=== PATIENT | female | born 1985 | race African-American/Black ===

== ENCOUNTER 2017-09-16 13:00 | Emergency (ER) | payer OTHER ==
--- NOTE | 2017-09-16 14:10 | ULT ---
ULTRASOUND WITH DOPPLER DUPLEX VENOUS LEFT LOWER EXTREMITY: CPT: 10754 ICD-10-PCS: B54D HISTORY: Pain. COMPARISON: 06/09/17. TECHNIQUE: Color flow Doppler, spectral waveform analysis of pulsed Doppler, and chester-scale imaging with compre ssion and augmentation, were used to evaluate the bilateral common femoral, femoral, popliteal, post erior tibial, and superficial femoral, veins; and the proximal portions of the profunda femoral and greater saphenous, veins. FINDINGS: Appropriate compressibility and flow within the imaged deep vein system of the left lower extremity. IMPRESSION: No deep vein thrombosis. POS: [facility]
== END 2017-09-16 15:42 | disposition home or self-care (01) ==
LOC: ERS 13:00
DX: S90.122A Contusion of left lesser toe(s) without damage to nail, initial encounter (principal); G43.909 Migraine, unspecified, not intractable, without status migrainosus; E28.2 Polycystic ovarian syndrome; F43.10 Post-traumatic stress disorder, unspecified; F41.9 Anxiety disorder, unspecified; F32.9 Major depressive disorder, single episode, unspecified; W22.09XA Striking against other stationary object, initial encounter

== ENCOUNTER 2018-01-24 08:37 | Observation (INO) | payer OTHER ==
[2018-01-24 09:11] LABS: #Eosinphils 0.1 thou/uL (0.0-0.7); #Lymphocytes 2.2 thou/uL (1.20-3.40); #Monocytes 0.6 thou/uL (0.11-0.59); #Neutrophils 6.1 thou/uL (1.40-6.50); %Basophils 0.4 % (0.0-1.0); %Eosinophils 1.2 % (0.0-10.0); %Lymphocytes 24.6 % (21.0-51.0); %Monocytes 6.4 % (0.0-10.0); %Neutrophils 67.4 % (42.0-75.0); Hemoglobin 12.9 g/dL (12.0-16.0); Mean Corpuscular HGB CONC 33.7 g/dL (32.0-36.0); Mean Corpuscular Hemoglobin 29.5 pg (27.0-31.0); Mean Corpuscular Volume 87.6 fl (81.0-99.0); Mean Platelet Volume 6.6 fL (7.4-10.4); Platelet Count 301 thou/uL (130-400); RBC Distribution Width 11.5 % (11.5-14.5); Red Blood Cell (RBC) Count 4.35 mill/uL (4.20-5.40); White Blood Cell (WBC) Count 9.1 thou/uL (4.8-10.8)
[2018-01-24 09:14] LABS: BHCG - Serum Negative (NEGATIVE); Pregs Control Background? CLEAR/WHITE (CLR/WHITE); Pregs Control Bar Appear? YES (CONTROL BAR)
[2018-01-24 09:19] LABS: ALT (SGPT) Less than 7 U/L (8-55); AST (SGOT) 10 U/L (5-34); Albumin 3.8 g/dL (3.5-5.0); Alkaline Phosphatase 47 U/L (40-150); Anion Gap 11 mmol/L (10-20); BUN (Urea Nitrogen) 16 mg/dL (7.0-18.7); Bilirubin, Total 0.3 mg/dL (0.2-1.2); Calc. Creatinine Clearance 0 mL/min (70-130); Carbon Dioxide 24 mmol/L (22-29); Chloride 105 mmol/L (98-107); Estimated GFR-MDRD Greater than 90; Globulin 3.3 g/dL (2.4-3.5); Glucose 104 mg/dL (70-105); Lipase 31 U/L (8-78); Protein, Total 7.1 g/dL (6.0-8.3); Sodium 136 mmol/L (136-145)
[2018-01-24] MEDS ORDERED: diphenhydrAMINE 50 MG/ML VIAL ONE ×2 (09:47→16:21)
[2018-01-24 09:53] LABS: Bilirubin Negative (Negative); Blood, Urine Negative (Negative); Clarity CLEAR (Clear); Glucose, Urine (Dipstick) Negative (Negative); Leukocyte Negative (Negative); Nitrite Negative (Negative); Protein, Urine (Dipstick) Negative (Neg-Trace); Specific Gravity, Urine 1.029 (1.002-1.036); pH, Urine 5.5 (5.0-9.0)
[2018-01-24] MEDS ORDERED: Acetaminophen 500 MG TAB ONE (10:33)
--- NOTE | 2018-01-24 10:55 | CT ---
CT OF THE ABDOMEN AND PELVIS: Date: 01-24-18 Comparison: 04-16-13 History: Nausea, vomiting, and emesis, periumbilical pain radiating to the right lower quadrant. Technique: Serial axial CT imaging is obtained at 5 mm intervals from the lung bases through the pubi c symphysis with IV and oral contrast. Coronal reformatted imaging obtained. FINDINGS: Small stable fat containing umbilical hernia is present. Imaged lung bases are unremarkable. Gallbladder is surgically absent. No free intraperitoneal air. The liver, spleen, pancreas, adrenal glands, and kidneys are unremarkable. Incidental note is made of trace free fluid in the pelvic cul-de-sac. There is no evidence for bowel obstruction. On images 53 through 59 the appendix is visualized. The appendix appears abnormal, ill-defined and di lated distally, measuring up to 9-10 mm. The distal appendix demonstrates ill-defined wall with mucos al thickening and mild periappendiceal fat stranding. Findings are suspicious for acute appendicitis. There is no evidence for abscess. The vascular structures of the abdomen/pelvis appear patent. No abdominal or pelvic lymphadenopathy i s seen. Osseous structures demonstrate no acute findings. IMPRESSION: 1. Findings suspicious for acute appendicitis. 2. These findings were discussed with Sweetie Gallegos at 10:35 a.m. 01-24-18. Code CR POS: [facility]
[2018-01-24] MEDS ORDERED: Enoxaparin Sodium 40 MG/0.4 ML SYRINGE ONE (11:13)
--- NOTE | 2018-01-24 11:27 | HP ---
DATE OF ADMISSION: 01/24/2018 HISTORY OF PRESENT ILLNESS: A 32-year-old obese -[place] woman presented to emergency depart ment complaining of insidious onset periumbilical abdominal pain, which woke up this morning. Pain i s described as sharp rated at 9/10 and has since settled in the right lower quadrant. Pain was assoc iated with one bout of nonbilious emesis. Patient denies any change in her bowel habits. Patient de nies any fevers or chills. PAST MEDICAL HISTORY: She denies any previous medical problems. PAST SURGICAL HISTORY: Pertinent for laparoscopic cholecystectomy May last year. She is also status post x1 through a low Pfannenstiel incision. SOCIAL HISTORY: She is self-employed small business water treatment plant mechanic. She denies any cigarette smoking, ethano l or illicit drug abuse. She is a . PREHOSPITAL MEDICATIONS: None. ALLERGIES: To PENICILLIN and MORPHINE. FAMILY HISTORY: Notable for essential hypertension and heart disease in her mother. She denies any family history of diabetes mellitus. Two members of extended family have history of some bone cancer , she does not recall the specifics. REVIEW OF SYSTEMS: A 10-point review of system is essentially unremarkable except for as stated in p ast medical history and chief complaint. PHYSICAL EXAMINATION: GENERAL: This reveals a 32-year-old obese woman who is otherwise coherent and interactive and appear s stated age. Patient is alert and oriented x3. She appears to be in no acute distress at the time of my evaluation. HEENT: Reveals normocephalic and atraumatic. Pupils are equal, round, and reactive to light and acc ommodation. CARDIOVASCULAR: Reveals regular rate and rhythm, no murmurs, or gallops auscultated. LUNGS: Clear to auscultation bilaterally. Breathing regular and unlabored. ABDOMEN: Soft and obese. She has right lower quadrant tenderness at McBurney's. She has a positive Rovsing sign. Liver and spleen otherwise nonpalpable below costal margins. EXTREMITIES: Reveals 2+ radial and pedal pulses bilaterally. No ankle edema is present. NEUROLOGIC: Cranial nerves II-XII grossly intact bilaterally. Patient has no focal neurologic defic its present. PERTINENT LABORATORY FINDINGS: Includes a CBC with 9100 white blood cells, hemoglobin and hematocrit 12.9 and 38.1 respectively. Platelet count is 301,000. Metabolic profile: Sodium 136, potassium i s 4.0, chloride is 105, bicarbonate 24, BUN 16, creatinine is 0.87, glucose 104, total bilirubin 0.3, AST and ALT 10 and less than 7 respectively. Serum lipase is normal at 31. Serum test is negative. I have personally reviewed the CT scan of the abdomen and pelvis, which is remarkable for dilated toya endix with periappendiceal fat stranding. No significant free fluid or pneumoperitoneum is evident. IMPRESSION: Acute appendicitis. PLAN: Laparoscopic appendectomy. The above findings and plan has been discussed with the patient, adult sister and her nurse at [facility]. I have advised the patient of the risk and benefits of the proposed surgery. Risks include, but not limited to bleeding, infection, injury to bowel or surrounding structures. Patient indicates underst anding of information given. I answered her questions. Patient has granted consent for this admissi on and surgical intervention.
[2018-01-24] MEDS ORDERED: Fentanyl 100 MCG/2 ML VIAL ONE (11:50)
[2018-01-24] MEDS ORDERED: Midazolam HCl 2 mg/2 ml Vial ONE (11:50)
[2018-01-24] MEDS ORDERED: ISOVUE-370 76%-LOCM 1 ML ONE (13:10)
[2018-01-24] MEDS ORDERED: Ketorolac Tromethamine 30 MG/ML VIAL ONE ×2 (16:21→16:49)
[2018-01-24] MEDS ORDERED: Lidocaine 1% PF 5 ML VIAL ONE (16:21)
[2018-01-24] MEDS ORDERED: Glycopyrrolate 0.2 MG/ML 5 ML SYRINGE ONE (16:21)
[2018-01-24] MEDS ORDERED: Ondansetron HCl/PF 4 MG/2 ML Vial ONE ×2 (16:21→16:48)
[2018-01-24] MEDS ORDERED: PROPOFOL 200 MG/20 ML VIAL ONE (16:21)
[2018-01-24] MEDS ORDERED: Dexamethasone 20 MG/5 ML VIAL ONE (16:21)
--- NOTE | 2018-01-24 16:41 | OP ---
DATE OF PROCEDURE: 01/24/2018 PREOPERATIVE DIAGNOSIS: Acute appendicitis. POSTOPERATIVE DIAGNOSIS: Acute appendicitis. PROCEDURES PERFORMED: Laparoscopic appendectomy. SURGEON: Marcel Guaman D.O. ANESTHESIA: General endotracheal. ESTIMATED BLOOD LOSS: 10 mL. FLUIDS GIVEN: 900 mL crystalloids. SPONGE AND INSTRUMENT COUNT: Certified as correct x2. COMPLICATIONS: None apparent. INDICATIONS FOR PROCEDURE: This is a 32-year-old obese woman who presented to Emergency Department w ith acute onset abdominal pain. Clinical and radiographic examination was consistent with acute appendicitis for which patient was br ought to the operating room for appendectomy. FINDINGS: Consistent with inflamed suppurative appendix, no evidence of perforation or abscess. DESCRIPTION OF PROCEDURE: Informed consent obtained from the patient who was brought to the operatin g room and placed in supine position. Following general anesthesia, abdomen was sterilely prepped an d draped in usual fashion. The skin below the umbilicus was infiltrated with 0.25% Marcaine with epi nephrine. A small curvilinear infraumbilical incision was made using an 11 scalpel. Umbilical stalk was grasped with Eusebia's and elevated. Veress needle was inserted through the incision and placed in the peritoneal cavity through which the abdomen was insufflated with 3 liters of CO2 gas. Intraab dominal pressure noted at 2 mmHg. Following abdominal insufflation, Veress needle was removed and a 5-mm trocar introduced into the peritoneal cavity using the Visiport under laparoscopy. Laparoscopy confirmed proper placement of the port and no injuries to underlying structures. Additional laparosc opy reveals the right lower quadrant encased by omental adhesions. Under laparoscopy, a 5-mm suprapu bic and a 12-mm left lower quadrant ports were placed at the overlying skin were infiltrated with 0.2 5% Marcaine with epinephrine and appropriate incision was made. The patient was placed in a [place] n[place] position, rotated to her left. I introduced Prestige grasper through the left lower quadrant p ort site using this to bluntly take down omental adhesions to reveal an inflamed appendix in the usua l anatomic location. Endo [place] forceps was introduced through the suprapubic port site grasping t he appendix which was elevated. I used a [place] dissector to create a rent through the mesoappendi x at the base. Using the Endo LAVINIA with a blue load, appendix was divided at appendicocecal junction. Using a white load of the Endo-LAVINIA, the mesoappendix was also divided with good hemostasis. The ap pendix was delivered off the abdominal cavity using an EndoCatch. Operative site was inspected for g ood hemostasis. Finding no other pathology, laparoscopy was terminated. Fascia of the left lower qu adrant port site was closed using 0 Vicryl suture and Endo closure device under laparoscopy. Abdomen was desufflated. All sponges and instruments were removed and accounted for. Skin incisions were c losed using 4-0 Monocryl suture in subcuticular fashion. Dermabond was applied over the incisions. The patient tolerated the operation without any apparent complication and was returned to recovery ro in a satisfactory condition.
[2018-01-24] MEDS ORDERED: Ondansetron HCl/PF 4 MG/2 ML Vial IVP PRN (20:59)
[2018-01-24] MEDS ORDERED: traMADol HCl 50 MG TAB PO PRN ×2 (20:59)
[2018-01-24] MEDS ORDERED: Ondansetron ODT 4 MG TAB PO PRN (20:59)
[2018-01-24] MEDS ORDERED: Dextrose 50% Abboject 50 ML SYRINGE SLOW IVP PRN (20:59)
[2018-01-24] MEDS ORDERED: Dextrose 5% in Water 1,000 ML IV PRN (20:59)
[2018-01-24] MEDS ORDERED: Non-Formulary Item 1 EACH (Topiramate [Topiramate] 50 MG) PO SCH (21:00)
[2018-01-24] MEDS ORDERED: Enoxaparin Sodium 30 MG/0.3 ML SYRINGE SC SCH (21:00)
[2018-01-24] MEDS ORDERED: Non-Formulary Item 1 EACH (Buspirone Hcl [Buspirone Hcl] 15 MG) PO SCH (21:00)
--- NOTE | 2018-01-24 21:04 | PRG ---
DATE OF SERVICE: 01/24/2018 ATTENDING PHYSICIAN: Marcel Guaman D.O. HISTORY OF PRESENT ILLNESS: The patient is a 32-year-old female, who presented to the emergency depa rtment today with acute onset of abdominal pain. Clinical and radiograph exam was consistent with ac nenana appendicitis, where she was brought to the operating room for laparoscopic appendectomy. Postope ratively, he had approximately 4 hours postop. The patient reportedly had a syncopal episode while t ransferring to the commode. Vital signs reported as 101/53, pulse 64, oxygen saturation 98% on room air. Pain was reported at 10/10 at this time per PACU nurse. Upon my examination, the patient was somewhat somnolent, but was alert and oriented and able to answe r my questions. She reported still having some abdominal pain. She did not report as severe approxi mately 6/10. She also reported mild headache and some lightheadedness. Per the patient report, [place] h was corroborated with the mother, who was also at bedside. The patient says she was feeling dizzy, which she clarified as lightheaded, but needed use the bathroom and when she got to the commode, she felt like she was going to pass out. Her mother said her eyes closed, but she is unsure if she comp letely lost consciousness or not. When the patient came to, she had some nausea, but did not vomit. She had no diaphoresis. She was able to be transferred back to the bed, where she has been stable s debo. OBJECTIVE: VITAL SIGNS: BP 101/56, pulse 84, O2 sat 97% on room air. GENERAL APPEARANCE: A young obese adult female, who appears very somnolent, otherwise in no acute di stress. HEENT: Normocephalic and atraumatic. Her conjunctivae are pink and moist. Oropharynx is pink and m oist. RESPIRATORY: Clear breath sounds bilaterally with normal effort. CARDIOVASCULAR: Regular rate and rhythm. Normal S1 and S2. No murmurs, gallops or rubs. ABDOMEN: Her surgical site wounds appear intact with minimal serosanguineous drainage. EXTREMITIES: She is neurovascularly intact x4. ASSESSMENT AND PLAN: 1. Status post laparoscopic cholecystectomy, postop day 0. 2. Syncope. PLAN: The patient's syncopal episode, likely vasovagal given, her lack of p.o. intake and medication s received postoperatively. On clinical exam, she had no evidence of hypovolemia and aside from her somnolence, the remainder of her clinical exam was normal. We will admit the patient overnight for o bservation. Anticipate discharge home tomorrow. This patient was discussed over the phone with Dr. Marcel Guaman who agrees with the assessment and plan.
[2018-01-24] MEDS: Ibuprofen 800 MG TAB PO SCH (21:45)
[2018-01-24] MEDS: Acetaminophen 500 MG TAB PO SCH (21:45)
[2018-01-24] MEDS: Famotidine/PF 20 mg/2ml Vial SLOW IVP SCH (21:45)
[2018-01-24] MEDS: Sodium Chloride 0.9% 1,000 ML IV SCH (21:54)
[2018-01-25 01:08] VITALS: BMI 34.4
[2018-01-25] MEDS: Acetaminophen 500 MG TAB PO SCH ×2 (03:52→09:48)
[2018-01-25] MEDS: Sodium Chloride 0.9% 1,000 ML IV SCH (03:52)
[2018-01-25] MEDS: Ibuprofen 800 MG TAB PO SCH (05:52)
[2018-01-25] MEDS ORDERED: Enoxaparin Sodium 30 MG/0.3 ML SYRINGE SC SCH (09:00)
[2018-01-25] MEDS: Famotidine/PF 20 mg/2ml Vial SLOW IVP SCH (09:48)
[2018-01-25 12:25] VITALS: BP 106/68; TEMP 98
--- NOTE | 2018-01-25 13:20 | DIS ---
DATE OF ADMISSION: 01/24/2018 DATE OF DISCHARGE: 01/25/2018 ADMITTING PHYSICIAN: Dr. Guaman. DISCHARGING PHYSICIAN: Dr. Guaman. DIAGNOSIS ON ADMISSION: Acute appendicitis. DIAGNOSIS ON DISCHARGE: Acute appendicitis. OPERATION PERFORMED: Laparoscopic appendectomy, on 01/24/2018. HISTORY AND HOSPITAL COURSE: A 32-year-old obese woman presented to the Emergency Department with ab dominal pain. Clinical radiographic examination was consistent with acute appendicitis for which patient underwent an uneventful laparoscopic appendectomy. Postoperatively, the patient was recovering in the postanesthesia care unit. She went to use the bathroom, had a bowel movement and urinated after which she became near syncopal. She was also complaining of severe abdominal pain. The patient was placed on observation. Today, she is ambulating with minimum difficulty. The pain is adequately controlled on oral analgesics. She is tolerating general diet this morning. PHYSICAL EXAMINATION: VITAL SIGNS: Includes blood pressure 105/68, pulse 75, respiratory rate is 20, temperature is 98.2 d egrees Fahrenheit and oxygen saturation is 98% on room air. HEART: Reveals regular rate and rhythm. No murmurs or gallops auscultated. LUNGS: Clear to auscultation bilaterally. Breathing is regular and unlabored. ABDOMEN: Soft, obese with incisional tenderness to palpation. All incisions remain intact, clean, a nd dry. The patient has been discharged home today with the following instructions: She [facility] in 2 weeks. She is given a prescription for tramadol 50 mg #30 to be taken 1-2 p.o. q.6 ho urs p.r.n. pain. She may alternate this with Tylenol 1000 mg p.o. q.6 hours and/or ibuprofen 800 mg p.o. q.8 hours p.r.n. pain. She is to avoid weightlifting in excess of 20 pounds until she has been discharged by me. She is to ambulate daily to avoid complications of thromboembolism of which the patient is at signifi cant risk of having had a previous pulmonary embolism in the past. The patient indicates understanding of information I have given her today. I have answered her questions. The patient has expressed gratitude for the care rendered to her duri ng this hospitalization and surgery.
== END 2018-01-25 13:40 | disposition home or self-care (01) ==
LOC: ERS 08:37 → SDC 11:53 → SURG B 19:53
PROVIDERS: ADMIT Surgery; ATTEND Surgery
PROC: 0DTJ4ZZ Resection of Appendix, Percutaneous Endoscopic Approach (ICD-10-PCS; principal; 2018-01-24)
DX: K35.80 Unspecified acute appendicitis (principal); R55 Syncope and collapse; E66.9 Obesity, unspecified; Z68.34 Body mass index [BMI] 34.0-34.9, adult; Z88.0 Allergy status to penicillin; Z88.5 Allergy status to narcotic agent; Z98.890 Other specified postprocedural states
CPT/HCPCS: 36415; 74177; 80053; 81003; 83690; 84703; 85025; 87086; 88304; 96361; 96372; 96374; 96375; 96376; G0378; J0131; J1100; J1200; J1650; J1885; J2001; J2250; J2270; J2405; J2704; J3010; S0028

== ENCOUNTER 2018-03-06 09:25 | Outpatient (CLI) | payer OTHER ==
[~2018-03-06 09:25] MED LIST: Iopamidol 370 76% 100 ML VIAL ONE
== END 2018-03-06 09:26 | disposition home or self-care (01) ==
LOC: BICCT 09:25
PROVIDERS: ATTEND Surgery
DX: R10.9 Unspecified abdominal pain (principal); Z90.49 Acquired absence of other specified parts of digestive tract
CPT/HCPCS: 74177

== ENCOUNTER 2018-05-29 15:35 | Emergency (ER) | payer OTHER | END 2018-05-29 16:20 | disposition home or self-care (01) | LOC: ERS 15:35 | DX: J06.9 Acute upper respiratory infection, unspecified (principal); G43.909 Migraine, unspecified, not intractable, without status migrainosus; Z86.711 Personal history of pulmonary embolism; F43.10 Post-traumatic stress disorder, unspecified; F41.9 Anxiety disorder, unspecified; F32.9 Major depressive disorder, single episode, unspecified | CPT/HCPCS: 99283 ==

== ENCOUNTER 2018-11-13 13:39 | Outpatient (CLI) | payer OTHER ==
--- NOTE | 2018-11-13 15:16 | ULT ---
RIGHT BREAST ULTRASOUND: History: Palpable abnormality at 2 o'clock position right breast. Comparison: Mammogram study performed today. FINDINGS: Real-time imaging of the right breast in the area of concern at the 2 o'clock position 7 cm from the nipple reveals a 7 x 12 mm solid appearing lesion, fairly isoechoic to surrounding breast parenchyma. This has a few internal calcifications. Margins are not as well defined as typically seen with the f ibroadenoma, with slightly indistinct border. The size and location appear to correspond to the mammo graphic abnormality. IMPRESSION: BIRADS category 4 - suspicious abnormality. Biopsy is recommended. In this case, ultrasound directed biopsy is recommended. This has been scheduled for 11-22-18. POS: OFF
== END 2018-11-13 13:40 | disposition home or self-care (01) ==
LOC: BICMAMMO 13:39
PROVIDERS: ATTEND Obstetrics & Gynecology
DX: N63.12 Unspecified lump in the right breast, upper inner quadrant (principal); Z80.3 Family history of malignant neoplasm of breast
CPT/HCPCS: 77066; G0279

== ENCOUNTER → 2018-11-22 | Day surgery (SDC) | payer OTHER ==
--- NOTE | 2018-11-22 14:58 | ULT ---
SONOGRAPHIC GUIDED RIGHT BREAST MASS BIOPSY: Date: 11/22/18 HISTORY: Right breast mass. FINDINGS: After explaining the procedure and answering all questions, the lobular mass at the 2 o'clock positio n of the right breast was visualized. Sterile technique, buffered local anesthesia, sonographic bob nce, and a medial approach were used to carefully advance a 14 gauge biopsy needle to the level of th e mass. A total of two core biopsy specimens were obtained and eventually submitted to pathology for evaluation. Localization clip was placed in the biopsy bed under sonographic control. Blood collectio n was seen adjacent to the mass at the time of the biopsy. The patient tolerated the procedure well a nd was eventually discharged in good condition. IMPRESSION: Technically successful sonographic guided biopsy right breast mass. Pathology is pending. POS: [facility]
== END ==
LOC: BICULT 12:58
PROVIDERS: ATTEND Obstetrics & Gynecology
PROC: 0HBT3ZX Excision of Right Breast, Percutaneous Approach, Diagnostic (ICD-10-PCS; principal; 2018-11-22)
DX: C50.211 Malignant neoplasm of upper-inner quadrant of right female breast (principal); Z17.0 Estrogen receptor positive status [ER+]; Z88.0 Allergy status to penicillin
CPT/HCPCS: 19083; 88305; 88341; 88342

== ENCOUNTER 2018-12-20 13:44 | Emergency (ER) | payer OTHER ==
[2018-12-20] MEDS ORDERED: Acetaminophen 500 MG TAB ONE (16:03)
--- NOTE | 2018-12-22 20:53 | EKG ---
Test Reason : Blood Pressure : / mmHG Vent. Rate : 073 BPM Atrial Rate : 073 BPM P-R Int : 142 ms QRS Dur : 082 ms QT Int : 356 ms P-R-T Axes : 016 008 012 degrees QTc Int : 392 ms Normal sinus rhythm Normal ECG Confirmed by GUILLERMO MC, SANDI Santiago ([id number]), proposal editor AMRIK HOLBROOK ([id number]) on 12/22/2018 8:52:43 PM Referred By: Confirmed By:SANDI LI MD
== END 2018-12-20 15:40 | disposition home or self-care (01) ==
LOC: ERS 13:44
DX: R07.89 Other chest pain (principal); G43.909 Migraine, unspecified, not intractable, without status migrainosus; Z86.711 Personal history of pulmonary embolism; F43.10 Post-traumatic stress disorder, unspecified; F41.9 Anxiety disorder, unspecified; F32.9 Major depressive disorder, single episode, unspecified
CPT/HCPCS: 93005

== ENCOUNTER 2018-12-26 06:30 | Outpatient (CLI) | payer OTHER ==
[2018-12-26 14:57] LABS: #Basophils 0.1 thou/uL (0.0-0.2); #Eosinphils 0.2 thou/uL (0.0-0.7); #Lymphocytes 2.5 thou/uL (1.20-3.40); #Monocytes 0.6 thou/uL (0.11-0.59); #Neutrophils 3.4 thou/uL (1.40-6.50); %Basophils 0.8 % (0.0-1.0); %Eosinophils 2.4 % (0.0-10.0); %Lymphocytes 37.4 % (21.0-51.0); %Neutrophils 50.5 % (42.0-75.0); Hemoglobin 12.4 g/dL (12.0-16.0); Mean Corpuscular HGB CONC 33.1 g/dL (32.0-36.0); Mean Corpuscular Hemoglobin 29.4 pg (27.0-31.0); Mean Corpuscular Volume 88.8 fL (78.0-98.0); Mean Platelet Volume 6.6 fL (7.4-10.4); Platelet Count 316 thou/uL (130-400); RBC Distribution Width 11.6 % (11.5-14.5); Red Blood Cell (RBC) Count 4.23 mill/uL (4.20-5.40); White Blood Cell (WBC) Count 6.7 thou/uL (4.8-10.8)
[2018-12-26 15:16] LABS: Anion Gap 12 mmol/L (10-20); BUN (Urea Nitrogen) 7 mg/dL (7.0-18.7); Calc. Creatinine Clearance 0 mL/min (70-130); Calcium 9.1 mg/dL (7.8-10.44); Carbon Dioxide 24 mmol/L (22-29); Chloride 108 mmol/L (98-107); Estimated GFR-MDRD Greater than 90; Glucose 92 mg/dL (70-105); Potassium 3.8 mmol/L (3.5-5.1); Sodium 140 mmol/L (136-145)
== END 2018-12-26 06:31 | disposition home or self-care (01) ==
LOC: LABBT 06:30
PROVIDERS: ATTEND Surgery
DX: Z01.812 Encounter for preprocedural laboratory examination (principal); C50.911 Malignant neoplasm of unspecified site of right female breast
CPT/HCPCS: 80048; 85025

== ENCOUNTER 2018-12-28 07:09 | Day surgery (SDC) | payer OTHER ==
[2018-12-26 14:16] VITALS: BMI 41.0
[2018-12-28] MEDS ORDERED: Fentanyl 250 MCG/5 ML VIAL ONE (09:51)
[2018-12-28] MEDS ORDERED: Isosulfan Blue 50 MG/5 ML VIAL ONE (09:58)
[2018-12-28] MEDS ORDERED: Bupivacaine HCl 0.5%/Epinephrine 1:200,000/PF 30 ml Vial ONE ×2 (09:58→16:01)
[2018-12-28] MEDS ORDERED: Ketorolac Tromethamine 30 MG/ML VIAL ONE (13:19)
[2018-12-28] MEDS ORDERED: Levofloxacin 500 mg/D5W 100 ml Premix Bag ONE (13:19)
[2018-12-28] MEDS ORDERED: PROPOFOL 200 MG/20 ML VIAL ONE (13:52)
[2018-12-28] MEDS ORDERED: Ondansetron PF 4 MG/2 ML Vial ONE (13:52)
[2018-12-28] MEDS ORDERED: Lidocaine 1% PF 5 ML VIAL ONE (13:52)
[2018-12-28] MEDS ORDERED: Rocuronium Bromide 10 MG/ML (10ML VIAL) ONE (13:52)
[2018-12-28] MEDS ORDERED: Glycopyrrolate 0.2 MG/ML 5 ML SYRINGE ONE (13:52)
--- NOTE | 2018-12-28 14:36 | NM ---
LYMPHOSCINTIGRAPHY RIGHT BREAST: HISTORY: Right breast cancer. FINDINGS: After explaining the procedure and answering all questions, the anterior aspect of the right breast w as cleaned. Sterile technique and a 30 gauge needle were used to carefully inject into the skin, at the periareolar aspect, 12 o'clock, 3 o'clock, 6 o'clock, and 9 o'clock positions, in four equal aliq uots, a total of 433 microcuries of technetium 99m filtered sulfur colloid, in four equal aliquots of a total of 1 mL of liquid. The injection sites were massaged by the patient and imaging performed. Imaging was carried out to four hours. Faint uptake was seen over the right axilla without a definit e lymph node visible. IMPRESSION: Nonvisualization, sentinel lymph node after four hours of right breast scintigraphic imaging. POS: [facility]
--- NOTE | 2018-12-28 16:16 | MMO ---
MAMMOGRAPHIC GUIDED NEEDLE LOCALIZATION RIGHT BREAST MASS: SURGICAL SPECIMEN MAMMOGRAPHY: HISTORY: Right breast cancer. FINDINGS: After explaining the procedure and answering all questions, the mass and localization clip at the med ial aspect right breast was visualized. Sterile technique, buffered local anesthesia, mammographic g uidance, and a medial approach were used to carefully place a 10 cm [place] needle and wire immediately deep to the mass. The mass is centered approximately 3 cm from the tip of the needle. The clip lie s immediately anterior to the mass. Final images were marked and sent with the patient for day surgery. The patient tolerated the proced ure well and was transferred in good condition. Mammographic evaluation of the surgical specimen obtained by Dr. Yeager shows the localization wire, clip, and hyperdense mass to overly the specimen. Findings were called to Dr. Yeager in the operating room at 1552 hours. IMPRESSION: Technically successful needle localization right breast mass. CODE CR POS: [facility]
[2018-12-28] MEDS ORDERED: Fentanyl 100 MCG/2 ML VIAL ONE ×2 (16:43→17:27)
[2018-12-28] MEDS ORDERED: Promethazine HCl 25 MG/ML VIAL ONE (17:06)
[2018-12-28] MEDS ORDERED: HYDROcodone/Acetaminophen 7.5/325 mg Tablet ONE (18:52)
--- NOTE | 2019-01-03 15:36 | PDOC.OP ---
Operative Note - Operative Note Operative Note: PROCEDURE: Right lumpectomy and sentinel lymph node biopsy DATE OF PROCEDURE: 12/28/2018 SURGEON: Tiburcio Yeager M.D. PREOPERATIVE DIAGNOSES: Breast cancer, right, clinically node negative POSTOPERATIVE DIAGNOSIS: Breast cancer, right, clinically node negative HISTORY: Patient is diagnosed with right breast cancer. She is BRCA negative and has decided to undergo breast conservation therapy. Napoleon lymph node biopsy was recommended for staging. PROCEDURE IN DETAIL: The patient underwent lymphoscintigraphy and needle localization of the breast mass in radiology prior to being taken to the operating room. She was then taken to the operating room and placed in supine position and anesthesia was administered. Appropriate preoperative antibiotics were administered and lymphazurin was injected behind the areola and the breast was massaged for several minutes taking care not to displace or disturb the needle localization wire. She was then prepped and draped in the standard sterile fashion and local anesthesia infused the skin and subcutaneous tissues of the axilla. An incision was made over the lower edge of the hair-bearing skin of the axilla and dissection carried down to the true axilla. Despite careful examination of the entire axilla with the neoprobe, no area of increased activity could be identified. This was concordant with the finding of no uptake in the axilla on preoperative lymphoscintigraphy. The decision was made to proceed with axillary dissection. The incision was extended and dissection carried down to the axillary vein superiorly. As the tissues were being dissected off of the lateral chest wall however, a blue lymphatic was identified. This was able to be traced down to a normal-appearing but blue lymph node, and this lymph node was found to have activity that was modestly but significantly increased over background activity. This was dissected free and sent to pathology as lymph node #1. Target count was 16. The lymphatic was then traced out further to an adjacent lymph node which was also slightly blue and slightly hot. This was excised and sent as sentinel lymph node #2, target count of 12. An additional branch of the blue lymphatic was then traced out to another lymph node which had a slightly elevated count. There is an adjacent lymph node was dissected free and sent as sentinel lymph nodes #3 and 4. An additional contiguous lymph node was sent as lymph node #5, although the target count was not elevated. No additional blue lymphatics and no other areas of increased activity were identified. Additional local anesthesia was infused circumferentially for postoperative pain management and the subcutaneous tissues were irrigated and examined for hemostasis which was excellent. The subcutaneous tissues were closed with 3-0 Monocryl suture and the skin closed with 4-0 subcuticular Monocryl suture. Attention was then turned to the needle localized lumpectomy. The needle was oriented medial to lateral in the medial breast, with the needle itself posterior to the mass and clip, and with the end of the wire about 3 cm distal to the mass. Local anesthesia was infused the skin and subcutaneous tissues at the needle localization site. An incision was made and flaps raised through the subcutaneous tissues. The breast tissue surrounding the needle was then excised maintaining a distance of about 2-3 cm from the localization needle in all directions, with more generous margins anteriorly. Dissection was carried out to the end of the wire and the specimen removed and oriented for pathology with a long medial, short superior, and looped superficial suture. This was sent for a specimen mammogram which revealed that the mass and clip were in the specimen. The wound was irrigated and hemostasis obtained with Bovie electrocautery. Additional local anesthesia was infused for postoperative pain management and the subcutaneous tissues were reapproximated with 3-0 Monocryl sutures. Additional local anesthesia was infused into the biopsy cavity and the skin was closed with 4-0 subcuticular Monocryl sutures. Dermabond was placed to both incisions. Estimated blood loss minimal. There were no complications. SPECIMENS: Napoleon lymph nodes and right breast biopsy.
== END 2018-12-28 19:47 | disposition home or self-care (01) ==
LOC: SDC 07:09
PROVIDERS: ATTEND Surgery
PROC: 0HBT0ZZ Excision of Right Breast, Open Approach (ICD-10-PCS; principal; 2018-12-28)
PROC: 07B50ZX Excision of Right Axillary Lymphatic, Open Approach, Diagnostic (ICD-10-PCS; principal; 2018-12-28)
DX: C50.211 Malignant neoplasm of upper-inner quadrant of right female breast (principal); C77.3 Secondary and unspecified malignant neoplasm of axilla and upper limb lymph nodes; F43.10 Post-traumatic stress disorder, unspecified; I10 Essential (primary) hypertension; F41.9 Anxiety disorder, unspecified; Z17.0 Estrogen receptor positive status [ER+]; Z86.711 Personal history of pulmonary embolism; Z79.899 Other long term (current) drug therapy; Z88.0 Allergy status to penicillin; Z88.5 Allergy status to narcotic agent
CPT/HCPCS: 19281; 76098; 78195; 88307; 88331; 88333; 88334; 88342; A9541; J0131; J0670; J1885; J1956; J2001; J2405; J2550; J2704; J3010; Q9968

== ENCOUNTER 2019-01-07 14:00 | Outpatient (CLI) | payer OTHER ==
--- NOTE | 2019-01-07 16:07 | CT ---
CT CHEST AND ABDOMEN AND PELVIS WITH IV CONTRAST: 01/07/2019 PROVIDED CLINICAL HISTORY: Breast cancer. FINDINGS: The heart, pericardium, and great vessels demonstrate an unremarkable CT appearance. There is no evidence for thoracic lymph node enlargement. The airway appears patent and of normal caliber. The lungs are free of significant opacity. No pleural fluid or pneumothorax apparent. Presumed postoperative changes are seen involving the right breast. Changes of right axillary lymph node dissection are seen. The liver, spleen, pancreas, kidneys, and adrenal glands demonstrate a normal CT appearance. Changes of prior cholecystectomy are seen. There is no bowel dilatation, inflammatory fat stranding, free fluid, or lymph node enlargement appar ent. Small, fat-containing umbilical hernia. A bone island is seen within the right ischium. The osseous structures demonstrate no concerning ost eoblastic or osteolytic lesions. IMPRESSION: No CT evidence for metastatic disease. POS: [facility]
== END 2019-01-07 14:01 | disposition home or self-care (01) ==
LOC: BICCT 14:00
PROVIDERS: ATTEND Surgery
DX: C50.919 Malignant neoplasm of unspecified site of unspecified female breast (principal)
CPT/HCPCS: 71260; 74177

== ENCOUNTER 2019-01-17 09:50 | Outpatient (CLI) | payer OTHER ==
--- NOTE | 2019-01-17 15:22 | NM ---
NUCLEAR MEDICINE WHOLE BODY BONE SCAN: HISTORY: Newly diagnosed breast cancer malignant neoplasm upper inner quadrant right breast. COMPARISON: None. FINDINGS: Three-hour delayed whole body imaging was obtained after the intravenous administration of 33 mCi del hnetium 99m MDP. No abnormal radiotracer uptake to suggest metastatic disease. Mild increased uptake over the right b reast and soft tissues. IMPRESSION: No evidence for osseous metastatic disease. POS: [facility]
== END 2019-01-17 09:51 | disposition home or self-care (01) ==
LOC: NM 09:50
PROVIDERS: ATTEND Internal Medicine Hematology & Oncology
DX: C50.211 Malignant neoplasm of upper-inner quadrant of right female breast (principal)
CPT/HCPCS: 78306; A9503

== ENCOUNTER 2019-01-28 10:29 | Day surgery (SDC) | payer OTHER ==
[2019-01-25 13:21] VITALS: BMI 35.7
[2019-01-28] MEDS ORDERED: Ketorolac Tromethamine 30 MG/ML VIAL ONE ×2 (11:17→14:56)
[2019-01-28] MEDS ORDERED: Levofloxacin 500 mg/D5W 100 ml Premix Bag ONE (11:17)
[2019-01-28] MEDS ORDERED: Midazolam HCl 2 mg/2 ml Vial ONE ×2 (11:18→11:59)
[2019-01-28] MEDS ORDERED: Fentanyl 100 MCG/2 ML VIAL ONE ×3 (11:59→18:13)
[2019-01-28] MEDS ORDERED: Bupivacaine/Epinephrine 0.25% 30 ML VIAL ONE ×2 (12:07→17:25)
[2019-01-28] MEDS ORDERED: Lidocaine 2% PF 5 ML VIAL ONE (12:07)
[2019-01-28] MEDS ORDERED: Dexamethasone 20 MG/5 ML VIAL ONE (14:56)
[2019-01-28] MEDS ORDERED: Metoclopramide HCl 10 MG/2 ML VIAL ONE (14:56)
[2019-01-28] MEDS ORDERED: Succinylcholine Chloride 20 MG/ML 10 ml SYRINGE FS ONE (14:56)
[2019-01-28] MEDS ORDERED: Lidocaine 1% PF 5 ML VIAL ONE (14:56)
[2019-01-28] MEDS ORDERED: PROPOFOL 200 MG/20 ML VIAL ONE (14:56)
[2019-01-28] MEDS ORDERED: diphenhydrAMINE 50 MG/ML VIAL ONE (14:56)
[2019-01-28] MEDS ORDERED: Ondansetron PF 4 MG/2 ML Vial ONE (14:56)
[2019-01-28] MEDS ORDERED: Promethazine HCl 25 MG/ML VIAL ONE (19:15)
[2019-01-28] MEDS ORDERED: HYDROcodone/Acetaminophen 5/325 mg Tablet ONE (19:36)
--- NOTE | 2019-01-29 09:33 | OP ---
DATE OF PROCEDURE: 01/28/2019 PROCEDURE PERFORMED: Right axillary dissection and re-excision of right lumpectomy. PREOPERATIVE DIAGNOSIS: Right breast cancer. POSTOPERATIVE DIAGNOSIS: Right breast cancer. HISTORY: Ms. Salas is a 33-year-old woman who has undergone lumpectomy and sentinel lymph node biopsy for right breast cancer. Her margins were negative, but very close for DCIS, so re-excision was recommended. She had multiple positive lymph nodes, so axillary dissection was recommended. FINDINGS: No obvious abnormal lymph nodes or mass on the axillary dissection. Duplicated right axillary vein, scarring and inflammation related to previous axillary lymph node biopsies. No palpable abnormalities in the right breast biopsy site. The entire superior and posterior portions of the biopsy cavity were re- sent as an extended superior-posterior margin. PROCEDURE IN DETAIL: After informed consent was obtained the patient was taken to the operating room and placed in supine position and anesthesia was administered. Appropriate preoperative antibiotics were administered and she was then prepped and draped in the standard sterile fashion. An incision was made over the lower edge of the hairbearing skin of the right axilla. The true axilla was entered superiorly and dissection carried down to the axillary vein. This was done with moderate difficulty due to scarring and fibrosis due to previous dissection in this area. The axillary contents were then swept off of the chest wall, again with moderate difficulty due to scarring in this area, and the long thoracic nerve identified and confirmed to cause contraction of the anterior serratus muscles. Dissection was carried out along the axillary vein but the thoracodorsal vein and nerve were not identified. Dissection was carried out inferior to the vein and the patient was found to have a bifurcated axillary vein. The thoracodorsal nerve and vein were arising from this more inferior vein. The thoracodorsal vein and nerve were traced to their insertion in the latissimus dorsi. The nerve was confirmed to cause contraction of this muscle. The lymph node bearing tissue between these 3 structures was then resected using clips to divide small lymphatics and vessels. The wound was irrigated and hemostasis verified. A IRA drain was placed into the axilla and secured to the skin. The incision was closed with deep dermal 3-0 Vicryl sutures and the skin closed with fabi. Attention was then turned to reexcision of the lumpectomy margins. The patient had close margins superiorly and posteriorly. The previous lumpectomy incision was reopened and the seroma cavity entered. The entire superior and posterior camp of the seroma cavity were excised and oriented for pathology with a long lateral short superior and looped superficial/anterior sutures. Local anesthesia was infused for postoperative pain management and the subcutaneous tissues reapproximated with 3 -0 Monocryl sutures. Local anesthesia was infused into the biopsy cavity and the skin was closed with 4-0 Monocryl suture. Dermabond dressings were placed. The IRA site was dressed with drain sponges and Tegaderm. Compression dressings were placed. Estimated blood loss was 150 mL. There were no complications. SPECIMENS: Left lumpectomy reexcision of superior and posterior margins and left axillary contents. Job ID: [id number] [facility]
== END 2019-01-28 20:23 | disposition home or self-care (01) ==
LOC: SDC 10:29
PROVIDERS: ATTEND Surgery
PROC: 07T50ZZ Resection of Right Axillary Lymphatic, Open Approach (ICD-10-PCS; principal; 2019-01-28)
PROC: 0HBT0ZZ Excision of Right Breast, Open Approach (ICD-10-PCS; principal; 2019-01-28)
DX: D05.11 Intraductal carcinoma in situ of right breast (principal); I10 Essential (primary) hypertension; F41.9 Anxiety disorder, unspecified; F43.10 Post-traumatic stress disorder, unspecified; Z86.711 Personal history of pulmonary embolism; Z88.0 Allergy status to penicillin; Z88.5 Allergy status to narcotic agent; Z98.890 Other specified postprocedural states
CPT/HCPCS: 88307; 88341; 88342; J1100; J1200; J1885; J1956; J2001; J2250; J2405; J2550; J2704; J2765; J3010

== ENCOUNTER 2019-02-07 19:27 | Emergency (ER) | payer OTHER | END 2019-02-07 20:50 | disposition home or self-care (01) | LOC: ERS 19:27 | DX: Z48.812 Encounter for surgical aftercare following surgery on the circulatory system (principal); Z86.711 Personal history of pulmonary embolism; F43.10 Post-traumatic stress disorder, unspecified; F41.9 Anxiety disorder, unspecified; F32.9 Major depressive disorder, single episode, unspecified; G43.909 Migraine, unspecified, not intractable, without status migrainosus | CPT/HCPCS: 99283 ==

== ENCOUNTER 2019-03-25 07:49 | Outpatient (CLI) | payer OTHER ==
--- NOTE | 2019-03-25 13:16 | MRI ---
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 FINDINGS: There is a 1 cm enhancing nodule in the right anterior breast 4 cm from the anterior skin surface sli ghtly medial to the midline. This demonstrates suspicious enhancement characteristics on DynaCAD and is suspicious for malignancy. There is a tiny 6 mm intramammary lymph node in the anteromedial aspe ct of the right lower breast. No suspicious mass is seen in the left breast. There are postop changes of right axillary dissection. No suspicious axillary of internal mammary ly mph nodes are seen on either side. IMPRESSION: BIRADS category 4 - suspicious abnormality. Biopsy of the right breast mass is recommended. Discussed over the telephone with Dr. Yeager at 9:30 a.m. RENATO KEYES POS: RAYSA
== END 2019-03-25 07:50 | disposition home or self-care (01) ==
LOC: BICMRI 07:49
PROVIDERS: ATTEND Surgery
DX: C50.911 Malignant neoplasm of unspecified site of right female breast (principal); N63.11 Unspecified lump in the right breast, upper outer quadrant
CPT/HCPCS: A9577; C8908

== ENCOUNTER 2019-05-24 09:52 | Emergency (ER) | payer OTHER ==
[2019-05-24] MEDS ORDERED: HYDROcodone/Acetaminophen 10/325 mg Tablet ONE (10:49)
[2019-05-24 11:13] LABS: #Eosinphils 0.4 thou/uL (0.0-0.7); #Lymphocytes 1.7 thou/uL (1.20-3.40); #Monocytes 0.5 thou/uL (0.11-0.59); #Neutrophils 2.9 thou/uL (1.40-6.50); %Basophils 0.5 % (0.0-1.0); %Lymphocytes 30.7 % (21.0-51.0); %Monocytes 8.9 % (0.0-10.0); %Neutrophils 51.9 % (42.0-75.0); Hemoglobin 11.2 g/dL (12.0-16.0); Mean Corpuscular HGB CONC 32.9 g/dL (32.0-36.0); Mean Corpuscular Hemoglobin 28.9 pg (27.0-31.0); Mean Platelet Volume 6.5 fL (7.4-10.4); Platelet Count 316 thou/uL (130-400); RBC Distribution Width 11.8 % (11.5-14.5); Red Blood Cell (RBC) Count 3.88 mill/uL (4.20-5.40); White Blood Cell (WBC) Count 5.6 thou/uL (4.8-10.8)
[2019-05-24 11:35] LABS: ALT (SGPT) 7 U/L (8-55); AST (SGOT) 9 U/L (5-34); Albumin 3.7 g/dL (3.5-5.0); Alkaline Phosphatase 44 U/L (40-150); Anion Gap 10 mmol/L (10-20); BUN (Urea Nitrogen) 8 mg/dL (7.0-18.7); Bilirubin, Total 0.5 mg/dL (0.2-1.2); Calc. Creatinine Clearance 0 mL/min (70-130); Calcium 9.3 mg/dL (7.8-10.44); Carbon Dioxide 27 mmol/L (22-29); Chloride 106 mmol/L (98-107); Estimated GFR-MDRD Greater than 90; Globulin 3.2 g/dL (2.4-3.5); Glucose 93 mg/dL (70-105); Potassium 3.8 mmol/L (3.5-5.1); Protein, Total 6.9 g/dL (6.0-8.3); Sodium 139 mmol/L (136-145)
[2019-05-24 11:57] LABS: Bilirubin Negative (Negative); Blood, Urine Negative (Negative); Glucose, Urine (Dipstick) Negative (Negative); Leukocyte Small (Negative); Nitrite Negative (Negative); Protein, Urine (Dipstick) Negative (Neg-Trace)
[2019-05-24 12:00] LABS: Bacteria/HPF None Seen HPF (None Seen); Hyaline Casts/LPF 0-3 HYALINE CAST LPF (0-3 Hyaline); Pathc Cast-AUWi Flag 0.54 (0-2.49); RBC/HPF 0-3 HPF (0-3)
[2019-05-24 12:01] LABS: Pregnancy Test - Urine (BHCG) Negative (Negative); Pregu Control Background? CLEAR/WHITE (CLR/WHITE); Pregu Control Bar Appear? YES (CONTROL BAR); Specific Gravity 1.022 (1.002-1.036)
[2019-05-24 12:02] LABS: Clarity Clear (Clear)
== END 2019-05-24 12:30 | disposition home or self-care (01) ==
LOC: ERS 09:52
DX: T81.30XA Disruption of wound, unspecified, initial encounter (principal); F41.9 Anxiety disorder, unspecified; F32.9 Major depressive disorder, single episode, unspecified; F43.10 Post-traumatic stress disorder, unspecified; Z79.899 Other long term (current) drug therapy; Z86.711 Personal history of pulmonary embolism
CPT/HCPCS: 36415; 80053; 81003; 81015; 81025; 83605; 85025; 99283

== ENCOUNTER 2019-05-25 17:08 | Emergency (ER) | payer OTHER ==
[2019-05-25] MEDS ORDERED: HYDROcodone/Acetaminophen 5/325 mg Tablet ONE (19:17)
[2019-05-25 19:57] LABS: #Eosinphils 0.4 thou/uL (0.0-0.7); #Lymphocytes 2.3 thou/uL (1.20-3.40); #Monocytes 0.5 thou/uL (0.11-0.59); %Eosinophils 6.7 % (0.0-10.0); %Lymphocytes 36.4 % (21.0-51.0); %Monocytes 8.3 % (0.0-10.0); %Neutrophils 48.7 % (42.0-75.0); Mean Corpuscular HGB CONC 33.1 g/dL (32.0-36.0); Mean Corpuscular Hemoglobin 29.1 pg (27.0-31.0); Mean Corpuscular Volume 87.8 fL (78.0-98.0); Mean Platelet Volume 6.4 fL (7.4-10.4); Platelet Count 299 thou/uL (130-400); RBC Distribution Width 11.9 % (11.5-14.5); Red Blood Cell (RBC) Count 3.78 mill/uL (4.20-5.40); White Blood Cell (WBC) Count 6.3 thou/uL (4.8-10.8)
[2019-05-25 20:21] LABS: ALT (SGPT) Less than 7 U/L (8-55); AST (SGOT) 8 U/L (5-34); Albumin 3.6 g/dL (3.5-5.0); Alkaline Phosphatase 45 U/L (40-150); Anion Gap 10 mmol/L (10-20); BUN (Urea Nitrogen) 9 mg/dL (7.0-18.7); Bilirubin, Total 0.3 mg/dL (0.2-1.2); Calc. Creatinine Clearance 0 mL/min (70-130); Calcium 8.8 mg/dL (7.8-10.44); Carbon Dioxide 27 mmol/L (22-29); Chloride 104 mmol/L (98-107); Estimated GFR-MDRD Greater than 90; Glucose 84 mg/dL (70-105); Potassium 4.1 mmol/L (3.5-5.1); Protein, Total 6.6 g/dL (6.0-8.3); Sodium 137 mmol/L (136-145)
== END 2019-05-25 20:05 | disposition home or self-care (01) ==
LOC: ERS 17:08
DX: T81.49XA Infection following a procedure, other surgical site, initial encounter (principal); N61.0 Mastitis without abscess; F41.9 Anxiety disorder, unspecified; F43.10 Post-traumatic stress disorder, unspecified; F32.9 Major depressive disorder, single episode, unspecified; Z86.711 Personal history of pulmonary embolism
CPT/HCPCS: 36415; 80053; 85025; 99283

== ENCOUNTER 2019-08-02 23:22 | Emergency (ER) | payer OTHER ==
[2019-08-03 00:19] LABS: #Eosinphils 0.2 thou/uL (0.0-0.7); #Lymphocytes 2.5 thou/uL (1.20-3.40); #Monocytes 0.6 thou/uL (0.11-0.59); #Neutrophils 3.7 thou/uL (1.40-6.50); %Basophils 0.7 % (0.0-1.0); %Eosinophils 2.7 % (0.0-10.0); %Lymphocytes 36.1 % (21.0-51.0); %Monocytes 8.3 % (0.0-10.0); %Neutrophils 52.3 % (42.0-75.0); Hemoglobin 12.8 g/dL (12.0-16.0); Mean Corpuscular HGB CONC 34.3 g/dL (32.0-36.0); Mean Corpuscular Volume 87.3 fL (78.0-98.0); Platelet Count 321 thou/uL (130-400); RBC Distribution Width 12.1 % (11.5-14.5); Red Blood Cell (RBC) Count 4.26 mill/uL (4.20-5.40)
[2019-08-03 00:39] LABS: ALT (SGPT) 8 U/L (8-55); AST (SGOT) 10 U/L (5-34); Albumin 4.2 g/dL (3.5-5.0); Alkaline Phosphatase 50 U/L (40-150); Anion Gap 13 mmol/L (10-20); BUN (Urea Nitrogen) 9 mg/dL (7.0-18.7); Bilirubin, Total 0.3 mg/dL (0.2-1.2); Calc. Creatinine Clearance 0 mL/min (70-130); Calcium 9.2 mg/dL (7.8-10.44); Carbon Dioxide 24 mmol/L (22-29); Chloride 106 mmol/L (98-107); Estimated GFR-MDRD 80; Globulin 2.9 g/dL (2.4-3.5); Glucose 104 mg/dL (70-105); Potassium 3.8 mmol/L (3.5-5.1); Protein, Total 7.1 g/dL (6.0-8.3); Sodium 139 mmol/L (136-145)
[2019-08-03 00:53] LABS: BHCG - Serum Negative (NEGATIVE); Pregs Control Background? CLEAR/WHITE (CLR/WHITE); Pregs Control Bar Appear? YES (CONTROL BAR)
--- NOTE | 2019-08-03 08:03 | RAD ---
EXAM: Portable chest PROVIDED CLINICAL HISTORY: Chest pain COMPARISON: 05/08/2016 FINDINGS: Cardiac and mediastinal silhouette is within normal limits. No focal consolidation, pleural fluid or pneumothorax evident. IMPRESSION: No evidence for an acute cardiopulmonary process.
== END 2019-08-03 01:51 | disposition left against medical advice (07) ==
LOC: ERS 23:22
DX: R07.2 Precordial pain (principal); G43.909 Migraine, unspecified, not intractable, without status migrainosus; Z86.711 Personal history of pulmonary embolism; F43.10 Post-traumatic stress disorder, unspecified; F41.9 Anxiety disorder, unspecified; F32.9 Major depressive disorder, single episode, unspecified; Z79.899 Other long term (current) drug therapy
CPT/HCPCS: 71045; 80053; 84484; 84703; 85025; 93005

== ENCOUNTER 2019-08-03 12:39 | Emergency (ER) | payer OTHER ==
[~2019-08-03 12:39] MED LIST changes: +ISOVUE-370 76%-LOCM 1 ML ONE; -Iopamidol 370 76% 100 ML VIAL ONE
[2019-08-03 14:11] LABS: #Eosinphils 0.1 thou/uL (0.0-0.7); #Lymphocytes 1.7 thou/uL (1.20-3.40); #Monocytes 0.5 thou/uL (0.11-0.59); #Neutrophils 3.2 thou/uL (1.40-6.50); %Basophils 0.6 % (0.0-1.0); %Eosinophils 2.6 % (0.0-10.0); %Lymphocytes 30.7 % (21.0-51.0); %Neutrophils 57.1 % (42.0-75.0); Mean Corpuscular HGB CONC 33.3 g/dL (32.0-36.0); Mean Corpuscular Hemoglobin 29.1 pg (27.0-31.0); Mean Corpuscular Volume 87.3 fL (78.0-98.0); Mean Platelet Volume 6.9 fL (7.4-10.4); Platelet Count 324 thou/uL (130-400); RBC Distribution Width 12.1 % (11.5-14.5); Red Blood Cell (RBC) Count 4.45 mill/uL (4.20-5.40); White Blood Cell (WBC) Count 5.6 thou/uL (4.8-10.8)
[2019-08-03 14:20] LABS: BHCG - Serum Negative (NEGATIVE); Pregs Control Background? CLEAR/WHITE (CLR/WHITE); Pregs Control Bar Appear? YES (CONTROL BAR)
[2019-08-03 14:37] LABS: ALT (SGPT) 8 U/L (8-55); AST (SGOT) 11 U/L (5-34); Albumin 4.1 g/dL (3.5-5.0); Alkaline Phosphatase 50 U/L (40-150); Anion Gap 10 mmol/L (10-20); BUN (Urea Nitrogen) 8 mg/dL (7.0-18.7); Bilirubin, Total 0.4 mg/dL (0.2-1.2); Calc. Creatinine Clearance 0 mL/min (70-130); Calcium 9.5 mg/dL (7.8-10.44); Carbon Dioxide 26 mmol/L (22-29); Chloride 106 mmol/L (98-107); Estimated GFR-MDRD Greater than 90; Globulin 3.3 g/dL (2.4-3.5); Glucose 83 mg/dL (70-105); Potassium 3.7 mmol/L (3.5-5.1); Protein, Total 7.4 g/dL (6.0-8.3); Sodium 138 mmol/L (136-145)
[2019-08-03] MEDS ORDERED: Famotidine/PF 20 mg/2ml Vial ONE (14:46)
[2019-08-03] MEDS ORDERED: methylPREDNISolone Sod Succ/PF 125 MG/2 ML VIAL ONE (14:46)
[2019-08-03] MEDS ORDERED: diphenhydrAMINE 50 MG/ML VIAL ONE (14:46)
--- NOTE | 2019-08-03 16:00 | CT ---
EXAM: CTA of the chest HISTORY: Shortness of breath and chest pain COMPARISON: None TECHNIQUE: Multiple contiguous axial images were obtained a CTA of the chest with contrast per pulmon franklin embolism protocol. 3-D oblique MIP reformats and direct coronal reformats were performed. FINDINGS: HEART: Normal in size without focal cardiac abnormality. PULMONARY ARTERIES: Normal in caliber without filling defects to suggest pulmonary emboli. MEDIASTINUM: No hilar or mediastinal lymphadenopathy. LUNGS: No focal infiltrates or masses. PLEURAL SPACE: No pleural effusion or pneumothorax. CHEST WALL SOFT TISSUES: Unremarkable VISUALIZED OSSEOUS STRUCTURES: Unremarkable VISUALIZED SUBDIAPHRAGMATIC STRUCTURES: Unremarkable IMPRESSION: No evidence of pulmonary thromboembolism
== END 2019-08-03 17:03 | disposition home or self-care (01) ==
LOC: ERS 12:39
DX: J06.9 Acute upper respiratory infection, unspecified (principal); R09.1 Pleurisy; G43.909 Migraine, unspecified, not intractable, without status migrainosus; Z86.711 Personal history of pulmonary embolism; Z79.899 Other long term (current) drug therapy
CPT/HCPCS: 36415; 71275; 80053; 84484; 84703; 85025; 85379; 93005; 96374; 96375; J1200; J2930; Q9966; S0028

== ENCOUNTER 2020-02-15 10:29 | Emergency (ER) | payer MEDICAID, OTHER ==
[2020-02-15] MEDS ORDERED: Lidocaine 1% w/Epinephrine 1:100K 20 ML VIAL ONE (11:23)
[2020-02-15] MEDS ORDERED: Bupivacaine 0.25% 10 ML VIAL ONE (11:35)
== END 2020-02-15 11:59 | disposition home or self-care (01) ==
LOC: ERS 10:29
DX: K02.9 Dental caries, unspecified (principal); G43.909 Migraine, unspecified, not intractable, without status migrainosus; F43.10 Post-traumatic stress disorder, unspecified; F41.9 Anxiety disorder, unspecified; F32.9 Major depressive disorder, single episode, unspecified; Z86.711 Personal history of pulmonary embolism
CPT/HCPCS: 64400; S0020

== ENCOUNTER 2021-10-23 15:24 | Emergency (ER) ==
[2021-10-23] MEDS ORDERED: Fluorescein Opthalmic Strip ONE (15:34)
[2021-10-23] MEDS ORDERED: Prochlorperazine 10 MG/2 ML VIAL ONE (15:34)
[2021-10-23] MEDS ORDERED: Proparacaine 0.5% Opth 15 ML BOT ONE (15:35)
[2021-10-23 16:08] LABS: #Basophils 0.1 thou/uL (0.0-0.2); #Eosinphils 0.2 thou/uL (0.0-0.7); #Lymphocytes 2.4 thou/uL (1.20-3.40); #Monocytes 0.5 thou/uL (0.11-0.59); #Neutrophils 2.7 thou/uL (1.40-6.50); %Basophils 0.9 % (0.0-1.0); %Eosinophils 3.1 % (0.0-10.0); %Lymphocytes 41.4 % (21.0-51.0); %Monocytes 8.4 % (0.0-10.0); %Neutrophils 46.2 % (42.0-75.0); Hemoglobin 13.4 g/dL (12.0-16.0); Mean Corpuscular Hemoglobin 29.9 pg (27.0-31.0); Mean Corpuscular Volume 87.7 fL (78.0-98.0); Mean Platelet Volume 6.4 fL (7.4-10.4); Platelet Count 357 thou/uL (130-400); RBC Distribution Width 11.8 % (11.5-14.5); Red Blood Cell (RBC) Count 4.48 mill/uL (4.20-5.40); White Blood Cell (WBC) Count 5.9 thou/uL (4.8-10.8)
[2021-10-23 16:39] LABS: ALT (SGPT) 10 U/L (8-55); AST (SGOT) 13 U/L (5-34); Alkaline Phosphatase 58 U/L (40-110); Anion Gap 13 mmol/L (10-20); BUN (Urea Nitrogen) 8 mg/dL (7.0-18.7); Bilirubin, Total 0.3 mg/dL (0.2-1.2); Calc. Creatinine Clearance 0 mL/min (70-130); Calcium 9.7 mg/dL (7.8-10.44); Carbon Dioxide 26 mmol/L (22-29); Chloride 104 mmol/L (98-107); Globulin 3.7 g/dL (2.4-3.5); Glucose 97 mg/dL (70-105); Lipase 37 U/L (8-78); Potassium 4.2 mmol/L (3.5-5.1); Protein, Total 7.7 g/dL (6.0-8.3); Sodium 139 mmol/L (136-145)
== END 2021-10-23 17:20 | disposition home or self-care (01) ==
LOC: ERS 15:24
DX: R07.89 Other chest pain (principal); H10.211 Acute toxic conjunctivitis, right eye
CPT/HCPCS: 36415; 71045; 80053; 83690; 84484; 85025; 85379; 93005; J0780

== ENCOUNTER 2021-11-26 11:19 | Emergency (ER) | payer MEDICARE, MEDICAID ==
[~2021-11-26 11:19] MED LIST changes: -ISOVUE-370 76%-LOCM 1 ML ONE; +Iopamidol-370 76% 500 ML 1 ML ONE
[2021-11-26 13:02] LABS: #Eosinphils 0.1 thou/uL (0.0-0.7); #Lymphocytes 1.9 thou/uL (1.20-3.40); #Monocytes 0.5 thou/uL (0.11-0.59); #Neutrophils 3.1 thou/uL (1.40-6.50); %Basophils 0.4 % (0.0-1.0); %Eosinophils 2.4 % (0.0-10.0); %Lymphocytes 33.4 % (21.0-51.0); %Monocytes 8.2 % (0.0-10.0); %Neutrophils 55.5 % (42.0-75.0); Hemoglobin 13.2 g/dL (12.0-16.0); Mean Corpuscular HGB CONC 33.4 g/dL (32.0-36.0); Mean Corpuscular Hemoglobin 29.3 pg (27.0-31.0); Mean Corpuscular Volume 87.7 fL (78.0-98.0); Mean Platelet Volume 6.3 fL (7.4-10.4); Platelet Count 325 thou/uL (130-400); RBC Distribution Width 11.8 % (11.5-14.5); White Blood Cell (WBC) Count 5.6 thou/uL (4.8-10.8)
[2021-11-26] MEDS ORDERED: Ketorolac Tromethamine 30 MG/ML VIAL ONE (13:19)
[2021-11-26] MEDS ORDERED: methylPREDNISolone Sod Succ/PF 125 MG/2 ML VIAL ONE (13:19)
[2021-11-26] MEDS ORDERED: Famotidine/PF 20 mg/2ml Vial ONE (13:19)
[2021-11-26] MEDS ORDERED: diphenhydrAMINE 50 MG/ML VIAL ONE (13:19)
[2021-11-26 13:22] LABS: ALT (SGPT) 10 U/L (8-55); AST (SGOT) 12 U/L (5-34); Alkaline Phosphatase 59 U/L (40-110); Anion Gap 11 mmol/L (10-20); BUN (Urea Nitrogen) 11 mg/dL (7.0-18.7); Bilirubin, Total 0.5 mg/dL (0.2-1.2); Calc. Creatinine Clearance 0 mL/min (70-130); Carbon Dioxide 28 mmol/L (22-29); Chloride 104 mmol/L (98-107); Globulin 3.2 g/dL (2.4-3.5); Glucose 92 mg/dL (70-105); Potassium 4.4 mmol/L (3.5-5.1); Protein, Total 7.2 g/dL (6.0-8.3); Sodium 139 mmol/L (136-145)
== END 2021-11-26 15:27 | disposition home or self-care (01) ==
LOC: ERS 11:19
DX: N64.4 Mastodynia (principal); R07.9 Chest pain, unspecified
CPT/HCPCS: 36415; 71275; 80053; 84484; 85025; 93005; 96374; 96375; J1200; J1885; J2930; Q9967; S0028

== ENCOUNTER 2021-12-21 13:36 | Emergency (ER) | payer MEDICARE, MEDICAID ==
[2021-12-21 17:59] LABS: SARS-CoV-2 PCR by NAA Not Detected (NotDetected)
== END 2021-12-21 14:32 | disposition home or self-care (01) ==
LOC: ERS 13:36
DX: B34.9 Viral infection, unspecified (principal); Z20.822 Contact with and (suspected) exposure to COVID-19; Z79.899 Other long term (current) drug therapy
CPT/HCPCS: U0003; U0005; 99283

== ENCOUNTER 2022-05-01 18:33 | Emergency (ER) | payer MEDICARE, MEDICAID ==
[~2022-05-01 18:33] MED LIST changes: +Iopamidol 370 76% 100 ML VIAL ONE; -Iopamidol-370 76% 500 ML 1 ML ONE
[2022-05-01 19:01] LABS: #Eosinphils 0.2 thou/uL (0.0-0.7); #Lymphocytes 2.4 thou/uL (1.20-3.40); #Monocytes 0.5 thou/uL (0.11-0.59); #Neutrophils 2.5 thou/uL (1.40-6.50); %Basophils 0.8 % (0.0-1.0); %Lymphocytes 41.7 % (21.0-51.0); %Monocytes 8.9 % (0.0-10.0); %Neutrophils 44.6 % (42.0-75.0); Hemoglobin 13.4 g/dL (12.0-16.0); Mean Corpuscular HGB CONC 33.8 g/dL (32.0-36.0); Mean Corpuscular Hemoglobin 28.9 pg (27.0-31.0); Mean Corpuscular Volume 85.6 fL (78.0-98.0); Mean Platelet Volume 6.1 fL (7.4-10.4); Platelet Count 417 thou/uL (130-400); RBC Distribution Width 12.1 % (11.5-14.5); Red Blood Cell (RBC) Count 4.64 mill/uL (4.20-5.40); White Blood Cell (WBC) Count 5.7 thou/uL (4.8-10.8)
[2022-05-01 19:24] LABS: ALT (SGPT) 10 U/L (8-55); AST (SGOT) 14 U/L (5-34); Albumin 4.4 g/dL (3.5-5.0); Alkaline Phosphatase 65 U/L (40-110); Anion Gap 15 mmol/L (10-20); BUN (Urea Nitrogen) 12 mg/dL (7.0-18.7); Bilirubin, Total 0.6 mg/dL (0.2-1.2); Calc. Creatinine Clearance 0 mL/min (70-130); Calcium 9.9 mg/dL (7.8-10.44); Carbon Dioxide 25 mmol/L (22-29); Chloride 106 mmol/L (98-107); Globulin 3.5 g/dL (2.4-3.5); Glucose 114 mg/dL (70-105); Potassium 4.1 mmol/L (3.5-5.1); Protein, Total 7.9 g/dL (6.0-8.3); Sodium 142 mmol/L (136-145)
[2022-05-01] MEDS ORDERED: diphenhydrAMINE 50 MG/ML VIAL ONE (19:44)
[2022-05-01] MEDS ORDERED: methylPREDNISolone Sod Succ 40 MG VIAL ONE (19:44)
[2022-05-01 19:54] LABS: BHCG - Serum Negative (NEGATIVE); Pregs Control Background? CLEAR/WHITE (CLR/WHITE); Pregs Control Bar Appear? YES (CONTROL BAR)
[2022-05-01] MEDS ORDERED: Famotidine 40 MG/4 ML VIAL SLOW IVP SCH (20:00)
== END 2022-05-01 23:30 | disposition home or self-care (01) ==
LOC: ERS 18:33
DX: G43.909 Migraine, unspecified, not intractable, without status migrainosus (principal); R07.9 Chest pain, unspecified; Z79.899 Other long term (current) drug therapy
CPT/HCPCS: 36415; 70450; 71045; 71275; 80053; 84484; 84703; 85025; 85652; 86140; 93005; 96374; 96375; J1200; J2920; Q9967

== ENCOUNTER 2022-06-15 16:36 | Emergency (ER) | payer MEDICARE, MEDICAID ==
[2022-06-15 17:23] LABS: #Eosinphils 0.1 thou/uL (0.0-0.7); #Lymphocytes 0.9 thou/uL (1.20-3.40); #Monocytes 0.4 thou/uL (0.11-0.59); #Neutrophils 4.1 thou/uL (1.40-6.50); %Basophils 0.2 % (0.0-1.0); %Eosinophils 1.9 % (0.0-10.0); %Lymphocytes 15.8 % (21.0-51.0); %Monocytes 6.6 % (0.0-10.0); %Neutrophils 75.4 % (42.0-75.0); Hemoglobin 12.3 g/dL (12.0-16.0); Mean Corpuscular HGB CONC 32.7 g/dL (32.0-36.0); Mean Corpuscular Hemoglobin 28.4 pg (27.0-31.0); Mean Corpuscular Volume 86.9 fL (78.0-98.0); Mean Platelet Volume 6.9 fL (7.4-10.4); Platelet Count 312 thou/uL (130-400); RBC Distribution Width 11.9 % (11.5-14.5); Red Blood Cell (RBC) Count 4.35 mill/uL (4.20-5.40); White Blood Cell (WBC) Count 5.4 thou/uL (4.8-10.8)
[2022-06-15 17:44] LABS: ALT (SGPT) 8 U/L (8-55); AST (SGOT) 11 U/L (5-34); Albumin 3.9 g/dL (3.5-5.0); Alkaline Phosphatase 59 U/L (40-110); Anion Gap 13 mmol/L (10-20); BUN (Urea Nitrogen) 8 mg/dL (7.0-18.7); Bilirubin, Total 0.4 mg/dL (0.2-1.2); Calc. Creatinine Clearance 0 mL/min (70-130); Calcium 8.9 mg/dL (7.8-10.44); Carbon Dioxide 27 mmol/L (22-29); Chloride 103 mmol/L (98-107); Estimated GFR 91; Globulin 3.2 g/dL (2.4-3.5); Glucose 121 mg/dL (70-105); Potassium 3.8 mmol/L (3.5-5.1); Protein, Total 7.1 g/dL (6.0-8.3); Sodium 139 mmol/L (136-145)
[2022-06-15] MEDS ORDERED: Famotidine/PF 20 mg/2ml Vial ONE (18:14)
[2022-06-15] MEDS ORDERED: methylPREDNISolone Sod Succ/PF 125 MG/2 ML VIAL ONE (18:14)
[2022-06-15] MEDS ORDERED: diphenhydrAMINE 50 MG/ML VIAL ONE (18:14)
[2022-06-15 18:34] LABS: BHCG - Serum Negative (NEGATIVE)
[2022-06-15 18:35] LABS: Pregs Control Background? CLEAR/WHITE (CLR/WHITE); Pregs Control Bar Appear? YES (CONTROL BAR)
[2022-06-15] MEDS ORDERED: Ketorolac Tromethamine 30 MG/ML VIAL ONE (19:05)
== END 2022-06-15 20:07 | disposition home or self-care (01) ==
LOC: ERS 16:36
DX: U07.1 COVID-19 (principal)
CPT/HCPCS: 71045; 80053; 84484; 84703; 85025; 85379; 87804 ×2; 93005; 96374; 96375; 99285; U0003; U0005; J1200; J1885; J2930; S0028

== ENCOUNTER 2022-09-12 16:13 | Emergency (ER) | payer MEDICARE, MEDICAID ==
[2022-09-12 16:52] LABS: #Basophils 0.1 thou/uL (0.0-0.2); #Eosinphils 0.3 thou/uL (0.0-0.7); #Lymphocytes 2.7 thou/uL (1.20-3.40); #Monocytes 0.5 thou/uL (0.11-0.59); #Neutrophils 2.3 thou/uL (1.40-6.50); %Basophils 0.9 % (0.0-1.0); %Eosinophils 4.5 % (0.0-10.0); %Lymphocytes 46.3 % (21.0-51.0); %Monocytes 8.5 % (0.0-10.0); %Neutrophils 39.7 % (42.0-75.0); Hemoglobin 12.4 g/dL (12.0-16.0); Mean Corpuscular HGB CONC 31.9 g/dL (32.0-36.0); Mean Corpuscular Volume 87.8 fL (78.0-98.0); Mean Platelet Volume 6.8 fL (7.4-10.4); Platelet Count 331 thou/uL (130-400); Red Blood Cell (RBC) Count 4.41 mill/uL (4.20-5.40); White Blood Cell (WBC) Count 5.8 thou/uL (4.8-10.8)
[2022-09-12 17:21] LABS: ALT (SGPT) 8 U/L (8-55); AST (SGOT) 12 U/L (5-34); Albumin 4.1 g/dL (3.5-5.0); Alkaline Phosphatase 57 U/L (40-110); Anion Gap 11 mmol/L (10-20); BUN (Urea Nitrogen) 11 mg/dL (7.0-18.7); Bilirubin, Total 0.4 mg/dL (0.2-1.2); Calc. Creatinine Clearance 0 mL/min (70-130); Calcium 9.6 mg/dL (7.8-10.44); Carbon Dioxide 26 mmol/L (22-29); Chloride 105 mmol/L (98-107); Estimated GFR 81; Globulin 3.5 g/dL (2.4-3.5); Glucose 89 mg/dL (70-105); Potassium 4.4 mmol/L (3.5-5.1); Protein, Total 7.6 g/dL (6.0-8.3); Sodium 138 mmol/L (136-145)
[2022-09-12] MEDS ORDERED: Ondansetron ODT 4 MG TAB ONE (17:54)
[2022-09-12] MEDS ORDERED: Meclizine HCl 25 MG TAB ONE (17:54)
== END 2022-09-12 22:10 | disposition home or self-care (01) ==
LOC: ERS 16:13
DX: R42 Dizziness and giddiness (principal); R11.2 Nausea with vomiting, unspecified; Z85.3 Personal history of malignant neoplasm of breast; Z86.711 Personal history of pulmonary embolism; Z79.899 Other long term (current) drug therapy
CPT/HCPCS: 36415; 70450; 71045; 80053; 84484; 85025; 93005; 93970; Q0162

== ENCOUNTER 2023-03-30 10:05 | Outpatient (CLI) | payer MEDICARE, MEDICAID ==
[2023-03-30] MEDS ORDERED: Iopamidol 370 76% 100 ML VIAL ONE (10:37)
[2023-03-30] MEDS: methylPREDNISolone Sod Succ 40 MG VIAL IVP SCH ×2 (10:53→15:02)
[2023-03-30] MEDS ORDERED: Famotidine/PF 20 mg/2ml Vial SLOW IVP SCH (11:15)
[2023-03-30] MEDS ORDERED: diphenhydrAMINE 50 MG/ML VIAL IVP SCH (11:15)
[2023-03-30] MEDS ORDERED: diphenhydrAMINE 50 MG/ML VIAL ONE (14:40)
[2023-03-30] MEDS ORDERED: methylPREDNISolone Sod Succ 40 MG VIAL ONE (14:55)
[2023-03-30 15:51] VITALS: BP 123/84
== END 2023-03-30 10:06 | disposition home or self-care (01) ==
LOC: CT 10:05
PROVIDERS: ATTEND Physician Assistant Medical
DX: R11.0 Nausea (principal); K59.09 Other constipation; R10.10 Upper abdominal pain, unspecified; R14.0 Abdominal distension (gaseous)
CPT/HCPCS: 74177; J1200; J2920; S0028

== ENCOUNTER 2023-04-02 06:47 | Emergency (ER) | payer MEDICARE, MEDICAID ==
[2023-04-02] MEDS ORDERED: Famotidine/PF 20 mg/2ml Vial ONE (07:00)
[2023-04-02] MEDS ORDERED: Ketorolac Tromethamine 30 MG/ML VIAL ONE (07:08)
[2023-04-02 07:16] LABS: #Basophils 0.1 thou/uL (0.0-0.2); #Eosinphils 0.2 thou/uL (0.0-0.7); #Lymphocytes 4.1 thou/uL (1.20-3.40); #Monocytes 0.7 thou/uL (0.11-0.59); #Neutrophils 4.8 thou/uL (1.40-6.50); %Basophils 0.7 % (0.0-1.0); %Eosinophils 2.1 % (0.0-10.0); %Lymphocytes 41.8 % (21.0-51.0); %Monocytes 6.9 % (0.0-10.0); %Neutrophils 48.4 % (42.0-75.0); Hemoglobin 12.4 g/dL (12.0-16.0); Mean Corpuscular HGB CONC 32.7 g/dL (32.0-36.0); Mean Corpuscular Hemoglobin 28.5 pg (27.0-31.0); Mean Corpuscular Volume 87.3 fl (78.0-98.0); Mean Platelet Volume 6.6 fL (7.4-10.4); Platelet Count 371 10x3/uL (130-400); RBC Distribution Width 12.3 % (11.5-14.5); Red Blood Cell (RBC) Count 4.34 mill/uL (4.20-5.40); White Blood Cell (WBC) Count 9.9 10x3/uL (4.8-10.8)
[2023-04-02 07:20] LABS: BHCG - Serum Negative (NEGATIVE); Pregs Control Background? CLEAR/WHITE (CLR/WHITE); Pregs Control Bar Appear? YES (CONTROL BAR)
[2023-04-02 07:40] LABS: ALT (SGPT) 10 U/L (8-55); AST (SGOT) 11 U/L (5-34); Albumin 3.9 g/dL (3.5-5.0); Alkaline Phosphatase 60 U/L (40-110); Anion Gap 14 mmol/L (10-20); BUN (Urea Nitrogen) 15 mg/dL (7.0-18.7); Bilirubin, Total 0.2 mg/dL (0.2-1.2); Calc. Creatinine Clearance 0 mL/min (70-130); Calcium 9.3 mg/dL (7.8-10.44); Carbon Dioxide 24 mmol/L (22-29); Chloride 104 mmol/L (98-107); Estimated GFR 80; Globulin 3.4 g/dL (2.4-3.5); Glucose 97 mg/dL (70-105); Lipase 41 U/L (8-78); Potassium 3.5 mmol/L (3.5-5.1); Protein, Total 7.3 g/dL (6.0-8.3); Sodium 138 mmol/L (136-145)
[2023-04-02 08:15] LABS: Bacteria/HPF None Seen HPF (None Seen); Bilirubin Negative (Negative); Blood, Urine Negative (Negative); Clarity Clear (Clear); Glucose, Urine (Dipstick) Normal (Negative); Ketone, Urine Negative (Negative); Leukocyte 25 Leu/uL (Negative); Nitrite Negative (Negative); Protein, Urine (Dipstick) 10 mg/dL (Neg-Trace); RBC/HPF None Seen HPF (0-3); Urobilinogen Normal mg/dL (Less than 2); WBC/HPF 0-3 HPF (0-3); pH, Urine 5.5 (5.0-9.0)
== END 2023-04-02 09:20 | disposition home or self-care (01) ==
LOC: ERS 06:47
DX: R10.12 Left upper quadrant pain (principal); I10 Essential (primary) hypertension
CPT/HCPCS: 71045; 80053; 81003; 81015; 83690; 84484; 84703; 85025; 85379; 93005; 96374; 96375; J1885; S0028

== ENCOUNTER 2023-12-28 13:34 | Emergency (ER) | payer MEDICARE ==
[2023-12-28 14:12] LABS: #Eosinphils 0.1 thou/uL (0.0-0.7); #Monocytes 0.4 thou/uL (0.11-0.59); #Neutrophils 4.3 thou/uL (1.40-6.50); %Basophils 0.2 % (0.0-1.0); %Eosinophils 1.5 % (0.0-10.0); %Lymphocytes 8.2 % (21.0-51.0); %Neutrophils 81.7 % (42.0-75.0); Hematocrit 39.6 % (36.0-47.0); Hemoglobin 12.9 g/dL (12.0-16.0); Mean Corpuscular HGB CONC 32.6 g/dL (32.0-36.0); Mean Corpuscular Hemoglobin 27.9 pg (27.0-31.0); Mean Corpuscular Volume 85.5 fl (78.0-98.0); Mean Platelet Volume 9.1 fL (7.4-10.4); Platelet Count 296 10x3/uL (130-400); RBC Distribution Width 13.3 % (11.5-14.5); Red Blood Cell (RBC) Count 4.63 mill/uL (4.20-5.40); White Blood Cell (WBC) Count 5.3 10x3/uL (4.8-10.8)
[2023-12-28 14:38] LABS: ALT (SGPT) 8 U/L (8-55); AST (SGOT) 11 U/L (5-34); Albumin 4.1 g/dL (3.5-5.0); Alkaline Phosphatase 62 U/L (40-110); Anion Gap 11 mmol/L (10-20); BUN (Urea Nitrogen) 6 mg/dL (7.0-18.7); Bilirubin, Total 0.5 mg/dL (0.2-1.2); Calc. Creatinine Clearance 0 mL/min (70-130); Calcium 9.1 mg/dL (7.8-10.44); Carbon Dioxide 25 mmol/L (22-29); Chloride 104 mmol/L (98-107); Estimated GFR 76; Glucose 99 mg/dL (70-105); Potassium 4.3 mmol/L (3.5-5.1); Protein, Total 7.1 g/dL (6.0-8.3); Sodium 136 mmol/L (136-145)
[2023-12-28] MEDS ORDERED: Ketorolac Tromethamine 30 MG (1 mL) VIAL ONE (14:39)
[2023-12-28] MEDS ORDERED: diphenhydrAMINE 50 MG/ML VIAL ONE (14:39)
[2023-12-28] MEDS ORDERED: methylPREDNISolone Sod Succ/PF 125 MG/2 ML VIAL ONE (14:39)
[2023-12-28] MEDS ORDERED: Famotidine/PF 20 mg/2ml Vial ONE (14:41)
[2023-12-28 14:42] LABS: Troponin I Less than 0.010 ng/mL (< 0.028)
[2023-12-28 15:09] LABS: SARS-CoV-2 NAA Rapid Test Not Detected (NotDetected)
[2023-12-28 15:12] LABS: BHCG - Serum Negative (NEGATIVE); Pregs Control Background? CLEAR/WHITE (CLR/WHITE); Pregs Control Bar Appear? YES (CONTROL BAR)
== END 2023-12-28 17:20 | disposition home or self-care (01) ==
LOC: ERS 13:34
DX: J10.1 Influenza due to other identified influenza virus with other respiratory manifestations (principal)
CPT/HCPCS: 0240U; 71045; 71275; 80053; 84484; 84703; 85025; 93005; 36415; 96374; 96375; J1200; J1885; J2930; S0028

== ENCOUNTER 2024-09-24 16:48 | Emergency (ER) | payer MEDICARE ==
[2024-09-24 17:25] LABS: #Basophils Less than 0.03 10x3/uL (0.0-0.2); %Basophils 0.3 % (0.0-1.0); %Eosinophils 1.9 % (0.0-10.0); %Lymphocytes 36.6 % (21.0-51.0); %Monocytes 6.8 % (0.0-10.0); Hematocrit 38.9 % (36.0-47.0); Hemoglobin 12.7 g/dL (12.0-16.0); Mean Corpuscular HGB CONC 32.6 g/dL (32.0-36.0); Mean Corpuscular Hemoglobin 28.3 pg (27.0-31.0); Mean Corpuscular Volume 86.6 fL (78.0-98.0); Mean Platelet Volume 8.5 fL (7.4-10.4); Platelet Count 373 10x3/uL (130-400); RBC Distribution Width 13.4 % (11.5-14.5); Red Blood Cell (RBC) Count 4.49 mill/uL (4.20-5.40)
[2024-09-24 17:43] LABS: BHCG - Serum POSITIVE (NEGATIVE); Pregs Control Background? CLEAR/WHITE (CLR/WHITE); Pregs Control Bar Appear? YES (CONTROL BAR)
[2024-09-24 17:47] LABS: ALT (SGPT) 7 U/L (8-55); AST (SGOT) 9 U/L (5-34); Albumin 3.3 g/dL (3.5-5.0); Alkaline Phosphatase 45 U/L (40-110); Anion Gap 10 mmol/L (10-20); BUN (Urea Nitrogen) 8 mg/dL (7.0-18.7); Bilirubin, Total 0.3 mg/dL (0.2-1.2); Calc. Creatinine Clearance 0 mL/min (70-130); Calcium 8.8 mg/dL (7.8-10.44); Carbon Dioxide 22 mmol/L (22-29); Chloride 109 mmol/L (98-107); Estimated GFR 107; Globulin 3.8 g/dL (2.4-3.5); Glucose 88 mg/dL (70-105); Lipase 23 U/L (8-78); Potassium 3.8 mmol/L (3.5-5.1); Protein, Total 7.1 g/dL (6.0-8.3); Sodium 137 mmol/L (136-145)
[2024-09-24 19:27] LABS: Bilirubin Negative (Negative); Blood, Urine Negative (Negative); CAUTI Indications for Culture Fever or rigors; Clarity Clear (Clear); Glucose, Urine (Dipstick) Normal (Negative); Ketone, Urine Negative (Negative); Leukocyte Negative Leu/uL (Negative); Nitrite Negative (Negative); Protein, Urine (Dipstick) Negative (Neg-Trace); RBC/HPF 0-3 HPF (0-3); Specific Gravity, Urine 1.015 (1.002-1.036); Squamous Epithelial 0-3 HPF (0-3); Urobilinogen Normal mg/dL (Less than 2); WBC/HPF 0-3 HPF (0-3); pH, Urine 5.5 (5.0-9.0)
[2024-09-24 19:46] LABS: Bacteria/HPF 1+ HPF (None Seen)
[2024-09-24 19:55] LABS: Urine Culture Reflex No No
[2024-09-25 13:06] LABS: Chlamydia by PCR, Vaginal Swab Not Detected (NotDetected); GC by PCR, Vaginal Swab Not Detected (NotDetected); Tric.vaginalis PCR,Vaginal Sw Not Detected (NotDetected)
== END 2024-09-24 20:14 | disposition home or self-care (01) ==
LOC: ERS 16:48
DX: O99.891 Other specified diseases and conditions complicating pregnancy (principal); R10.2 Pelvic and perineal pain; Z85.3 Personal history of malignant neoplasm of breast; Z3A.01 Less than 8 weeks gestation of pregnancy
CPT/HCPCS: 36415; 76801; 80053; 81001; 83690; 84702; 84703; 85025; 87480; 87491; 87510; 87591; 87660; 87661

== ENCOUNTER 2024-09-28 09:12 | Emergency (ER) | payer MEDICARE, MEDICAID | END 2024-09-28 12:55 | disposition home or self-care (01) | LOC: ERS 09:12 | DX: O20.0 Threatened abortion (principal); Z3A.00 Weeks of gestation of pregnancy not specified | CPT/HCPCS: 36415; 76801; 84702 ==

== ENCOUNTER 2024-10-03 20:37 | Emergency (ER) | payer MEDICARE, MEDICAID ==
[2024-10-03] MEDS ORDERED: Acetaminophen 500 MG TAB ONE (21:30)
[2024-10-03 21:36] LABS: #Basophils Less than 0.03 10x3/uL (0.0-0.2); %Basophils 0.2 % (0.0-1.0); %Eosinophils 2.1 % (0.0-10.0); %Lymphocytes 34.3 % (21.0-51.0); %Monocytes 7.8 % (0.0-10.0); %Neutrophils 55.3 % (42.0-75.0); Hematocrit 36.4 % (36.0-47.0); Hemoglobin 12.2 g/dL (12.0-16.0); Mean Corpuscular HGB CONC 33.5 g/dL (32.0-36.0); Mean Corpuscular Hemoglobin 28.6 pg (27.0-31.0); Mean Corpuscular Volume 85.4 fL (78.0-98.0); Mean Platelet Volume 8.8 fL (7.4-10.4); Platelet Count 414 10x3/uL (130-400); RBC Distribution Width 13.7 % (11.5-14.5); Red Blood Cell (RBC) Count 4.26 mill/uL (4.20-5.40)
[2024-10-03 21:46] LABS: BHCG - Serum Negative (NEGATIVE); Pregs Control Background? CLEAR/WHITE (CLR/WHITE); Pregs Control Bar Appear? YES (CONTROL BAR)
[2024-10-03 21:52] LABS: ALT (SGPT) 5 U/L (8-55); AST (SGOT) 10 U/L (5-34); Albumin 3.4 g/dL (3.5-5.0); Alkaline Phosphatase 47 U/L (40-110); Anion Gap 13 mmol/L (10-20); BUN (Urea Nitrogen) 7 mg/dL (7.0-18.7); Bilirubin, Total 0.3 mg/dL (0.2-1.2); Calc. Creatinine Clearance 0 mL/min (70-130); Calcium 8.7 mg/dL (7.8-10.44); Carbon Dioxide 22 mmol/L (22-29); Chloride 108 mmol/L (98-107); Estimated GFR 105; Globulin 3.6 g/dL (2.4-3.5); Glucose 86 mg/dL (70-105); Potassium 3.7 mmol/L (3.5-5.1); Sodium 139 mmol/L (136-145)
[2024-10-03 21:54] LABS: Bacteria/HPF None Seen HPF (None Seen); Bilirubin Negative (Negative); Blood, Urine 3+ (Negative); CAUTI Indications for Culture Alt mental st,lethar; Clarity Turbid (Clear); Glucose, Urine (Dipstick) Normal (Negative); Ketone, Urine Negative (Negative); Leukocyte Negative Leu/uL (Negative); Nitrite Negative (Negative); Protein, Urine (Dipstick) Negative (Neg-Trace); RBC/HPF Greater than 50 HPF (0-3); Squamous Epithelial 0-3 HPF (0-3); Urobilinogen Normal mg/dL (Less than 2); WBC/HPF 0-3 HPF (0-3); pH, Urine 5.5 (5.0-9.0)
[2024-10-03 21:56] LABS: Urine Culture Reflex No No
[2024-10-03 21:57] LABS: Troponin I Less than 0.010 ng/mL (< 0.028)
[2024-10-03 21:57] LABS: Pregnancy Test - Urine (BHCG) POSITIVE (Negative); Pregu Control Bar Appear? YES (CONTROL BAR)
[2024-10-03 21:58] LABS: Pregu Control Background? CLEAR/WHITE (CLR/WHITE)
[2024-10-03] MEDS ORDERED: fentaNYL 50 mcg/mL 1 mL Vial ONE (22:28)
[2024-10-04] MEDS ORDERED: diphenhydrAMINE 50 MG/ML VIAL ONE (00:55)
[2024-10-04] MEDS ORDERED: methylPREDNISolone Sod Succ 40 MG VIAL ONE (00:55)
[2024-10-04] MEDS ORDERED: Famotidine/PF 20 mg/2ml Vial ONE (00:55)
[2024-10-04] MEDS ORDERED: Iopamidol-370 76% 500 ML MDV (1 ML CHARGE) ONE (14:40)
== END 2024-10-04 03:25 | disposition home or self-care (01) ==
LOC: ERS 20:37
DX: O20.0 Threatened abortion (principal); O99.519 Diseases of the respiratory system complicating pregnancy, unspecified trimester; R06.02 Shortness of breath; Z3A.01 Less than 8 weeks gestation of pregnancy
CPT/HCPCS: 71045; 71275; 76830; 76856; 80053; 81001; 81025; 84484; 84702; 84703; 85025; 85379; 86850; 86900; 86901; 93005; J1200; J2919; J3010; J3490; 36415; 96374; 96375; Q9967

== ENCOUNTER 2024-10-07 14:31 | Emergency (ER) | payer MEDICARE, MEDICAID ==
[2024-10-07 17:20] LABS: #Basophils Less than 0.03 10x3/uL (0.0-0.2); %Basophils 0.3 % (0.0-1.0); %Eosinophils 1.4 % (0.0-10.0); %Lymphocytes 32.6 % (21.0-51.0); %Monocytes 7.1 % (0.0-10.0); %Neutrophils 58.2 % (42.0-75.0); Hematocrit 37.7 % (36.0-47.0); Hemoglobin 12.6 g/dL (12.0-16.0); Mean Corpuscular HGB CONC 33.4 g/dL (32.0-36.0); Mean Corpuscular Hemoglobin 28.4 pg (27.0-31.0); Mean Corpuscular Volume 85.1 fL (78.0-98.0); Platelet Count 392 10x3/uL (130-400); RBC Distribution Width 13.7 % (11.5-14.5); Red Blood Cell (RBC) Count 4.43 mill/uL (4.20-5.40)
[2024-10-07] MEDS ORDERED: Acetaminophen 500 MG TAB ONE (17:58)
[2024-10-07 18:00] LABS: Anion Gap 10 mmol/L (10-20); BUN (Urea Nitrogen) 5 mg/dL (7.0-18.7); Calc. Creatinine Clearance 0 mL/min (70-130); Calcium 8.3 mg/dL (7.8-10.44); Carbon Dioxide 25 mmol/L (22-29); Chloride 106 mmol/L (98-107); Estimated GFR 102; Glucose 92 mg/dL (70-105); Potassium 3.1 mmol/L (3.5-5.1); Sodium 138 mmol/L (136-145)
[2024-10-07] MEDS ORDERED: Potassium Chloride 20 MEQ TAB ONE ×2 (18:58→21:07)
== END 2024-10-07 21:40 | disposition home or self-care (01) ==
LOC: ERS 14:31
DX: O03.9 Complete or unspecified spontaneous abortion without complication (principal); E87.6 Hypokalemia; N83.201 Unspecified ovarian cyst, right side; Z3A.01 Less than 8 weeks gestation of pregnancy
CPT/HCPCS: 36415; 76856; 80048; 84702; 85025

== ENCOUNTER 2024-10-12 22:32 | Emergency (ER) | payer MEDICARE, MEDICAID ==
[2024-10-12 23:33] LABS: #Basophils 0.03 10x3/uL (0.0-0.2); %Basophils 0.4 % (0.0-1.0); %Eosinophils 2.1 % (0.0-10.0); %Lymphocytes 37.7 % (21.0-51.0); %Neutrophils 51.3 % (42.0-75.0); Hematocrit 36.6 % (36.0-47.0); Hemoglobin 11.9 g/dL (12.0-16.0); Mean Corpuscular HGB CONC 32.5 g/dL (32.0-36.0); Mean Corpuscular Hemoglobin 28.2 pg (27.0-31.0); Mean Corpuscular Volume 86.7 fL (78.0-98.0); Platelet Count 367 10x3/uL (130-400); Red Blood Cell (RBC) Count 4.22 mill/uL (4.20-5.40)
[2024-10-12 23:46] LABS: ALT (SGPT) 15 U/L (8-55); AST (SGOT) 14 U/L (5-34); Albumin 3.4 g/dL (3.5-5.0); Alkaline Phosphatase 47 U/L (40-110); Anion Gap 15 mmol/L (10-20); BUN (Urea Nitrogen) 9 mg/dL (7.0-18.7); Bilirubin, Total 0.3 mg/dL (0.2-1.2); Calc. Creatinine Clearance 0 mL/min (70-130); Calcium 8.8 mg/dL (7.8-10.44); Carbon Dioxide 23 mmol/L (22-29); Chloride 106 mmol/L (98-107); Estimated GFR 99; Globulin 3.6 g/dL (2.4-3.5); Glucose 80 mg/dL (70-105); Potassium 4.1 mmol/L (3.5-5.1); Sodium 140 mmol/L (136-145)
[2024-10-13 00:30] LABS: Bacteria/HPF None Seen HPF (None Seen); Bilirubin Negative (Negative); Blood, Urine 3+ (Negative); CAUTI Indications for Culture Pelvic or flank pain; Clarity Turbid (Clear); Glucose, Urine (Dipstick) Normal (Negative); Ketone, Urine Negative (Negative); Leukocyte 250 Leu/uL (Negative); Nitrite Negative (Negative); Protein, Urine (Dipstick) 20 mg/dL (Neg-Trace); RBC/HPF 0-3 HPF (0-3); Specific Gravity, Urine 1.027 (1.002-1.036); WBC/HPF 21-50 HPF (0-3); pH, Urine 5.5 (5.0-9.0)
[2024-10-13 00:33] LABS: Urine Culture Reflex Yes Yes
[2024-10-13] MEDS ORDERED: Ketorolac Tromethamine 30 MG (1 mL) VIAL ONE (01:23)
== END 2024-10-13 01:48 | disposition home or self-care (01) ==
LOC: ERS 22:32
DX: N39.0 Urinary tract infection, site not specified (principal); R10.31 Right lower quadrant pain
CPT/HCPCS: 74176; 76830; 76856; 80053; 81001; 84702; 85025; 87086; J1885; 36415; 96372

== ENCOUNTER 2025-10-07 22:29 | Emergency (ER) | payer MEDICARE, MEDICAID ==
[2025-10-08] MEDS ORDERED: Lidocaine 1% w/Epinephrine 1:100K 20 ML VIAL ONE (00:34)
[2025-10-08] MEDS ORDERED: Ketorolac Tromethamine 30 MG (1 mL) VIAL ONE (01:50)
[2025-10-08] MEDS ORDERED: Acetaminophen 500 MG TAB ONE (01:51)
[2025-10-08 02:17] LABS: #Basophils Less than 0.03 10x3/uL (0.0-0.2); #Eosinophils 0.16 10x3/uL (0.0-0.7); #Monocytes 0.45 10x3/uL (0.11-0.59); #Neutrophils 3.53 10x3/uL (1.40-6.50); %Basophils 0.3 % (0.0-1.0); %Eosinophils 2.2 % (0.0-10.0); %Lymphocytes 41.9 % (21.0-51.0); %Monocytes 6.2 % (0.0-10.0); %Neutrophils 49.0 % (42.0-75.0); Hematocrit 36.2 % (36.0-47.0); Hemoglobin 11.6 g/dL (12.0-16.0); Mean Corpuscular Hemoglobin 26.5 pg (27.0-31.0); Mean Corpuscular Volume 82.6 fL (78.0-98.0); Platelet Count 331 10x3/uL (130-400); Red Blood Cell (RBC) Count 4.38 mill/uL (4.20-5.40); White Blood Cell (WBC) Count 7.21 10x3/uL (4.8-10.8)
[2025-10-08 02:34] LABS: ALT (SGPT) 7 U/L (Less than 34); AST (SGOT) 15 U/L (11-34); Albumin 3.5 g/dL (3.1-4.5); Alkaline Phosphatase 51 U/L (40-110); Anion Gap 13 mmol/L (10-20); BUN (Urea Nitrogen) 10 mg/dL (7.0-18.7); Bilirubin, Total 0.2 mg/dL (0.3-1.2); Calc. Creatinine Clearance 0 mL/min (70-130); Calcium 9.3 mg/dL (7.8-10.44); Carbon Dioxide 25 mmol/L (22-29); Chloride 105 mmol/L (98-107); Globulin 3.7 g/dL (2.4-3.5); Glucose 96 mg/dL (70-105); Potassium 3.9 mmol/L (3.5-5.1); Sodium 139 mmol/L (136-145)
== END 2025-10-08 02:35 | disposition home or self-care (01) ==
LOC: ERS 22:29
DX: K04.01 Reversible pulpitis (principal); K02.9 Dental caries, unspecified; N64.4 Mastodynia; Z86.711 Personal history of pulmonary embolism
CPT/HCPCS: 64400; 80053; 85025; 93005; 96372; J1885